=== PATIENT | male | born 1955 | race Caucasian/White ===

== ENCOUNTER 2019-10-06 13:13 | Emergency (ER) | payer BC, SELFPAY ==
--- NOTE | ~2019-10-06 | XR_ITS ---
EXAMINATION: XR knee RT min 4V DATE: 10/06/2019 13:44 INDICATION: Right knee pain TECHNIQUE: Four views of the right knee were obtained. COMPARISON: None. FINDINGS: Alignment is normal. No fracture or osteochondral lesion. There is mild tricompartmental os teoarthritis characterized by tiny marginal osteophytes. No joint effusion/synovitis. There is media l soft tissue swelling of the knee. IMPRESSION: 1. Medial soft tissue swelling of the knee without acute osseous abnormality. Reviewed, dictated and finalized at location A. [employer]
[2019-10-06 13:19] VITALS: BP 162/84; PULSE 93; RESP 20; TEMP 36.9; O2SAT 97
--- NOTE | 2019-10-06 13:26 | ED.LOWEXIN ---
HPI - Extremity Injury (Lower) General Chief Complaint: Extremity Injury, Lower Stated Complaint: R knee pain Time Seen by Provider: 10/06/19 13:25 Source: patient and RN notes reviewed Mode of arrival: ambulatory Limitations: no limitations History of Present Illness HPI Narrative: Pt is a 64 y/o male presenting to the ED c/o knee pain. Pt states she started experiencing some rt knee pain about 3 weeks ago. Pt notes he presented to his PCP, Dr. Haque, who stated he likely strained his MCL. Pt notes the pain alleviated until yesterday when he felt like something broke . Pt states the pain is alleviated when standing up, but is worsened with sitting or lying down. Pt also states his rt knee feels hot , but denies back pain, hip pain, fever, or knee swelling. Pt states he has been taking Aleve intermittently for pain but has not offered any relief. Onset (ago): week(s) (3) Injury: Right: knee Relieving factors: other (Standing up) Exacerbating factors: other (Sitting down; Lying down) Associated symptoms: other (Rt knee feels hot ) Related Data Home Medications Medication Instructions Recorded Confirmed atorvastatin 20 mg tablet 20 mg PO DAILY 07/08/19 acetaminophen 300 mg-codeine 30 mg 1 tablet PO Q6H PRN 09/09/19 tablet Allergies Allergy/AdvReac Type Severity Reaction Status Date / Time No Known Allergies Allergy Unverified 10/06/19 13:40 Review of Systems Review of Systems: All systems reviewed & are unremarkable except as noted in HPI and below Constitutional: Constitutional: Denies fever(s) Musculoskeletal: Musculoskeletal: Denies back pain and Reports other (Reports: rt knee pain; rt knee feels hot; Denies: hip pain) Integumentary/Breasts: Skin/Breast: Denies swelling (Knee) PMFSH Past Medical History Medical History Attention deficit disorder (ADD) in adult Chronic bilateral low back pain History of kidney stones HLD (hyperlipidemia) Surgical History Surgical History H/O lithotripsy History of lumbar surgery L1-S2 Family History Family History Mother Patient's mother is , Onset Age: 63 Heart disease Father Patient's father is , Onset Age: 70 Heart disease Social History Social History Smoking packs per day: 1 Smoking cigarettes per day: 20.0 Years smoked: 25 Smoking pack-years: 25.00 Smoking status: Former smoker Second hand tobacco smoke exposure: No Smoking end date: 08/14/97 Alcohol intake: never Substance use: never Substance use type: does not use Gender identity (if verbalized by the patient): Male Exam Const: General: cooperative, no acute distress and alert Nutritional Appearance: well nourished Orientation/consciousness: patient oriented x3 Limitations: no limitations HENMT: Mouth: Yes lip normal and Yes moist mucous membranes Resp: Effort & Inspection: normal respiratory effort Auscultation: clear to auscultation bilaterally Cardio: Rate: regular rate Rhythm: regular rhythm Peripheral pulses: dorsalis pedis present (2+) GI: GI Palp: Yes Soft to palpation and No Tenderness to palpation present (GI) Auscultation: normal bowel sounds Skin: General skin exam: normal color Neuro: General: patient oriented x3 Cognition (Neuro): normal cognition Speech: normal speech Extrem: General: no clubbing, cyanosis or edema Right lower extremity: knee (Tenderness over medial aspect and over MCL) Other: No tenderness on popliteal fossa of rt knee; no effusion of rt knee; no warmth or redness over rt knee Psych: Mental Status: mental status grossly normal Affect: normal affect Attitude: cooperative Course Course Emergency Course: Patient with soft tissue swelling noted on x-ray without any other abnormalities noted. Exam unremarkab
[2019-10-06] MEDS: KETOROLAC (*BKC) 60 MG/2 ML VIAL IM (13:43)
== END 2019-10-06 15:06 | disposition home or self-care (01) ==
PROVIDERS: Emergency Provider Emergency Medicine; PCP Family Medicine
DX: M25.561 Pain in right knee (principal); E78.5 Hyperlipidemia, unspecified; Z87.442 Personal history of urinary calculi; Z87.891 Personal history of nicotine dependence
CPT/HCPCS: 73564; 96372; 99283; J1885

== ENCOUNTER 2019-10-21 06:28 | Outpatient (CLI) | payer BC, SELFPAY ==
--- NOTE | ~2019-10-21 | MR_ITS ---
EXAMINATION: MR knee RT wo con DATE: 10/21/2019 07:36 INDICATION: Right knee pain. TECHNIQUE: Magnetic resonance imaging (MRI) of the right knee was performed without intravenous contr ast. Sequences included axial PD-weighted FS FSE, coronal PD-weighted FSE and PD-weighted FS FSE, sag ittal PD-weighted FSE, and sagittal T2-weighted FS FSE. COMPARISON: Right knee radiographs 10/06/2019 FINDINGS: Medial compartment: There is a complex tear involving body and posterior horn of medial meniscus. There is a subchondral fracture of femoral condyle involving the medial articular surface with less than 1 mm impaction of t he cortex and bone marrow edema. There is cartilage surface regularity of tibial condyle. There is pa rtial-thickness cartilage loss of femoral condyle involving the medial articular surface. Lateral compartment: There is a radial tear of posterior horn of lateral meniscus. There is cartilage surface irregularity of tibial condyle and femoral condyle. Patellofemoral compartment: There is full-thickness cartilage loss of patellar medial facet with moderate subchondral edema-like marrow signal intensity. There is full-thickness cartilage loss of central trochlea with mild subchon dral edema-like marrow signal intensity. Ligaments and tendons: The anterior and posterior cruciate ligaments are normal. There are changes of prior sprain of medial collateral ligament characterized by increased signal intensity. Lateral collateral ligament complex is normal. There is mild patellar tendinopathy. Fluid: There is a small knee joint effusion. There is trace fluid in a London's cyst. There is mild prepatell ar and superficial infrapatellar bursitis. IMPRESSION: 1. Subchondral fracture of medial femoral condyle. 2. Severe chondrosis of patellofemoral compartment and mild chondrosis of medial and lateral compartm ents. 3. Tears of the medial and lateral menisci. 4. Small knee joint effusion. Reviewed, dictated and finalized at location A. IMPRESSION: 1. Subchondral fracture of medial femoral condyle. 2. Severe chondrosis of patellofemoral compartment and mild chondrosis of media l and lateral compartments. 3. Tears of the medial and lateral menisci. 4. Small knee joint effusion.
== END 2019-10-21 06:29 | disposition home or self-care (01) ==
LOC: ANHIMG 06:34
PROVIDERS: PCP Family Medicine; Visit Provider Family Medicine
DX: M25.561 Pain in right knee (principal); S72.431A Displaced fracture of medial condyle of right femur, initial encounter for closed fracture; M22.2X1 Patellofemoral disorders, right knee; S83.241A Other tear of medial meniscus, current injury, right knee, initial encounter; S83.281A Other tear of lateral meniscus, current injury, right knee, initial encounter; M25.461 Effusion, right knee
CPT/HCPCS: 73721

== ENCOUNTER 2019-12-25 06:20 | Outpatient (CLI) | payer BC, SELFPAY ==
[2019-12-25 16:38] LABS: SARS-CoV-2 RNA PCR Negative
== END 2019-12-25 06:21 | disposition home or self-care (01) ==
LOC: ANHCOVIDDT 06:21
PROVIDERS: PCP Family Medicine; Visit Provider Orthopaedic Surgery
DX: Z01.818 Encounter for other preprocedural examination (principal); Z11.59 Encounter for screening for other viral diseases
CPT/HCPCS: 87635; C9803; U0003

== ENCOUNTER 2019-12-25 08:43 | Outpatient (CLI) | payer BC, SELFPAY ==
--- NOTE | 2019-12-25 08:50 | ECG_ITS ---
Measurements Intervals [place] Rate: 85 P: 50 CA: 151 QRS: -2 QRSD: 86 T: 37 QT: 326 QTc: 389 Interpretive Statements SINUS RHYTHM DELAYED PRECORDIAL R/S TRANSITION BASELINE ARTIFACT- I, III, AVR, AVL, AVF BORDERLINE ECG Electronically Signed On 12-25-2019 9:29:23 CDT by Brooks Garcia D.O.
== END 2019-12-25 08:44 | disposition home or self-care (01) ==
LOC: ANHSURGERY 08:50
PROVIDERS: PCP Family Medicine; Visit Provider Orthopaedic Surgery
DX: Z01.810 Encounter for preprocedural cardiovascular examination (principal); E78.5 Hyperlipidemia, unspecified
CPT/HCPCS: 93005

== ENCOUNTER 2019-12-27 01:07 | Day surgery (SDC) | payer BC, SELFPAY ==
[2019-12-24 08:22] VITALS: BMI 32.8
[2019-12-27] VITALS (8 sets, daily range): BP systolic 119–143; BP diastolic 63–90; PULSE 71–86; RESP 14–20; TEMP 36.3–36.8; O2SAT 92–100
[2019-12-27] MEDS: LACTATED RINGERS 1,000 ML 30 ML IV CONT ×2 (06:20→09:14)
--- NOTE | 2019-12-27 07:07 | WPDANESEPPF ---
Anes - Initial Pre Proc Eval Procedure: Operation Date: 12/27/19 07:30 Proposed Procedures p Right Knee Arthroscopic Partial Medial, Lateral Meniscectomy - Jassi Salazar MD Date/Time: 12/27/19 07:07 Surgeon: Jassi Salazar MD Pre Op Diagnosis: Right Knee Medial and Lateral Meniscus Tear Patient Data Age: 64 Gender: M Height: 5 ft 11 in Weight: 109.9 kg Last Vital Signs Temp 97.4 F L 12/27/19 06:05 Pulse 73 12/27/19 06:05 Resp 16 12/27/19 06:05 BP 136/77 12/27/19 06:05 Pulse Ox 98 12/27/19 06:05 Allergies Allergy/AdvReac Type Severity Reaction Status Date / Time No Known Allergies Allergy Verified 12/24/19 08:18 Home Medications Medication Instructions Recorded Confirmed Type atorvastatin 20 mg tablet 20 mg PO DAILY #90 tablet 11/28/19 12/27/19 Rx hydrocodone 5 mg-acetaminophen 325 1 tablet PO Q6H PRN #28 tablet 11/28/19 12/27/19 Rx mg tablet methylphenidate HCl 20 mg tablet 20 mg PO TID #90 tablet 12/13/19 12/27/19 Rx Patient hx anesthesia problems: none Family hx anesthesia problems: none PMFSH Social History Social History Smoking packs per day: 1 Smoking cigarettes per day: 20.0 Years smoked: 25 Smoking pack-years: 25.00 Smoking status: Former smoker Second hand tobacco smoke exposure: No Smoking end date: 08/14/97 Alcohol intake: never Substance use: never Substance use type: does not use Gender identity (if verbalized by the patient): Male Anes - Eval Final PreProcedure Day of Procedure 12/27/19 07:07 Patient weight: overweight Heart: regular rate and rhythm Lungs: clear to auscultation Airway: Mallampati scale class II Neurological: alert and oriented Last oral intake: >/= 8 hours ASA classification: II Emergent: no Anesthetic plan: proceed Anesthesia type and monitoring: general LMA and standard monitoring Informed Consent: The patient's anesthetic plan and its attendant risks and benefits were discussed with the patient/family/POA. Questions were solicited and answers provided to the satisfaction of the patient/family/POA.
--- NOTE | 2019-12-27 07:26 | PM.HPGS ---
History of Present Illness History of Present Illness Consent: Risks, benefits, and alternatives have been discussed and questions answered. Patient agrees to proceed with procedure. Chief complaint: Right Knee Medial and Lateral Meniscus Tear Narrative: Keon Taylor Jr. is a 64 year old male complains of persistent medial joint side pain. Worse with activities. Worse with twisting. Feels an intermittent catching sensation. Also pain at night. [facility] Past Medical History Medical History Attention deficit disorder (ADD) in adult Chronic bilateral low back pain History of kidney stones HLD (hyperlipidemia) Tear of medial meniscus of right knee Surgical History Surgical History H/O lithotripsy (~2013) H/O lithotripsy (~2014) History of cholecystectomy (~1996) History of hernia repair (~2001) History of lumbar surgery (~2017) L1-S2 Family History Family History Mother Patient's mother is , Onset Age: 63 Heart disease Father Patient's father is , Onset Age: 70 Heart disease Social History Social History Smoking packs per day: 1 Smoking cigarettes per day: 20.0 Years smoked: 25 Smoking pack-years: 25.00 Smoking status: Former smoker Second hand tobacco smoke exposure: No Smoking end date: 08/14/97 Alcohol intake: never Substance use: never Substance use type: does not use Gender identity (if verbalized by the patient): Male Meds Home Medications and Allergies Home Medications Medication Instructions Recorded Confirmed Type atorvastatin 20 mg tablet 20 mg PO DAILY #90 tablet 11/28/19 12/27/19 Rx hydrocodone 5 mg-acetaminophen 325 1 tablet PO Q6H PRN #28 tablet 11/28/19 12/27/19 Rx mg tablet methylphenidate HCl 20 mg tablet 20 mg PO TID #90 tablet 12/13/19 12/27/19 Rx Allergies Allergy/AdvReac Type Severity Reaction Status Date / Time No Known Allergies Allergy Verified 12/24/19 08:18 Vital Signs Vital Signs - 24 hr 12/27/19 06:05 Temperature 36.3 C L Pulse Rate 73 Respiratory Rate 16 Blood Pressure 136/77 Pulse Oximetry 98 Exam Narrative: Exam Narrative: Healthy, No distress. Antalgic gait, with crutches. Mild effusion. Exquisite medial joint line tenderness. Range of motion 0 to 130?. Pain with hyperflexion. Gabriela's test positive. No medial or lateral instability. Extensor mechanism intact. Skin without rash or lesion. Calf nontender. Straight leg raise negative. Hip examination benign. Assessment and Plan Assessment and plan (1) Tear of medial meniscus of right knee: Code(s): S83.241A - Other tear of medial meniscus, current injury, right knee, initial encounter Status: Acute Assessment and Plan: Symptomatic medial and lateral meniscus tear. Also medial condyle defect, and significant mechanical symptoms. Using crutches. The pain is medial. The lateral tear and degenerative arthritis is chronic. Discussed the risks, benefits, and alternatives. We agreed to proceed with arthroscopic partial medial and lateral meniscectomy. The patient understands the limitations given the degenerative changes in the knee.
[2019-12-27] MEDS: ceFAZolin 2 GM/D5W 50 ML 2 GM/50 ML BAG IVPB (07:27)
[2019-12-27] MEDS: BUPIVACAINE/EPINEPHRINE 0.5% 30 ML VIAL 20 ML INFILTRATE (07:50)
[2019-12-27] MEDS: IBUPROFEN IV 800 MG/200 ML 800 MG/200 ML BAG 400 MG IVPB (07:55)
--- NOTE | 2019-12-27 08:29 | P.OP_ITS ---
Procedure Note - Detailed Date of procedure: 12/27/19 Pre-op diagnosis: Right Knee Medial and Lateral Meniscus Tear Medial and lateral meniscus tears. Post-op diagnosis: same Procedure performed: Arthroscopic partial medial and lateral meniscectomies. Anesthesia: GETA Surgeon: Jassi Salazar MD Estimated blood loss (mL): 5 Complications: None Condition: stable Findings: Brief History: The patient complained of knee pain, swelling and mechanical symptoms despite conservative treatment. MRI confirmed the presence of a medial and lateral meniscus tear. Operative Findings: Significant medial meniscus tear with displacement of a large fragment. This was pulled into the joint and debrided. Minimal chondromalacia on the femur medially. Also only minimal grade 1 chondromalacia with slight fibrillation on the lateral femur. The lateral posterior horn meniscus had some degeneration with a small tear. This was gently debrided with the arthroscopic shaver. The ACL was intact. There was a tiny osteophyte in the notch. It was rather round, smooth, and small but showed the potential for future impingement. It was seen easily debrided. Patella showed minimal changes. The trochlea did show grade 2/III chondromalacia. No other abnormalities or loose bodies were noted. There was a mild synovitis. Procedure Details: The patient was identified and the surgical site confirmed and signed in the preoperative holding area. Antibiotics were started per p tigistocol. He was brought to the operative room and transferred to the OR table. A general anesthetic was administered. Supine position with the operative lower extremity position in the leg anand after placement of a well padded tourniquet. The leg support was lowered and the contralateral limb was supported with a soft bolster. The knee was prepped and draped in the usual sterile fashion. A time-out was performed. The portal sites were marked and infiltrated with 0.5% Marcaine 20 mL. The limb was exsanguinated and the tourniquet inflated to 300 mL Hg. Standard inferolateral and inferomedial portals were established. Inflow was obtained with the saline pump. The camera was introduced. Diagnostic inspection of the joint was accomplished. The menisci were debrided with the arthroscopic shaver and punches until stable. The arthroscopic instruments were removed. The tourniquet released and wounds closed with subcutaneous 3-0 Monocryl absorbable suture. Steri strips and a sterile dressing were applied. A light elastic wrap was placed. The patient was extubated and brought to the recovery room in stable condition.
== END 2019-12-27 10:40 | disposition home or self-care (01) ==
PROVIDERS: PCP Family Medicine; Visit Provider Orthopaedic Surgery
PROC: (CPT 29870; principal; 2019-12-27 07:30)
DX: M23.251 Derangement of posterior horn of lateral meniscus due to old tear or injury, right knee (principal); M23.203 Derangement of unspecified medial meniscus due to old tear or injury, right knee; Z87.891 Personal history of nicotine dependence; E78.5 Hyperlipidemia, unspecified; M54.5 Low back pain; G89.29 Other chronic pain
CPT/HCPCS: 29880; A9270; J0690; J1100; J1741; J2250; J2405; J2704; J3010; J7120

== ENCOUNTER 2020-05-09 20:06 | Emergency (ER) | payer BC, SELFPAY ==
--- NOTE | ~2020-05-09 | CT_ITS ---
EXAMINATION: CT abdomen pelvis wo con DATE: 05/09/2020 20:24 INDICATION: Right flank pain TECHNIQUE: Computed tomography (CT) of the abdomen and pelvis was performed without intravenous contr ast. The dose-length product (DLP) was 593.65 mGy-cm. Automated exposure control and iterative recons truction technique were employed. COMPARISON: None FINDINGS: The lung bases are clear. The heart size is normal. The gallbladder is surgically absent. T he liver, spleen, pancreas, and adrenal glands are normal. There are at least six nonobstructing ston es of the right kidney which measure up to 3 mm. Two nonobstructing stones of the left kidney measure up to 4 mm. There is a 3 mm stone in the urinary bladder. Mild right hydroureteronephrosis is noted. No pathologically enlarged abdominal or pelvic lymph nodes are identified. There is no free intraper itoneal gas or evidence of bowel obstruction. A retroaortic left renal vein is noted. Colonic diverti culosis is present without evidence of diverticulitis. There are changes of anterior and posterior fu shannan at L5-S1. The appendix is normal. IMPRESSION: 1. Mild right hydroureteronephrosis with 3 mm stone in the urinary bladder. Findings likely reflect r ecent passage of right-sided stone. 2. Bilateral nonobstructing nephrolithiasis. Reviewed, dictated and finalized at location A. IMPRESSION: 1. Mild right hydroureteronephrosis with 3 mm stone in the urinary bladder. Fin dings likely reflect recent passage of right-sided stone. 2. Bilateral nonobstructing nephrolithiasis.
--- NOTE | 2020-05-09 20:15 | ED.ABDPAIN ---
HPI - Abdominal Pain General Chief Complaint: Back Pain/Injury Stated Complaint: kidney stone Time Seen by Provider: 05/09/20 20:09 Source: RN notes reviewed History of Present Illness HPI narrative: Patient presents emergency department from home for right flank pain. Patient states symptoms initially began this morning with right flank pain that then resolved and came back more severe this afternoon. Pain is located in the right flank and radiates around to the right lower abdomen. Described as sharp and stabbing and associated with nausea vomiting. States he has a history of prior kidney stone and this feels like prior. Denies any fevers or chills chest pain shortness of breath or any other symptoms. Related Data Allergies Allergy/AdvReac Type Severity Reaction Status Date / Time No Known Allergies Allergy Verified 05/09/20 20:23 Review of Systems Review of Systems: Narrative: Gen.: Denies fevers or chills ENT: Denies congestion Respiratory: Denies shortness of breath or cough CV: Denies chest pain or palpitations GI: See HPI denies burning, urgency, frequency or hematuria Musculoskeletal: Denies back pain or muscle pain Neuro: Denies numbness, tingling, weakness or focal weakness Skin: Denies rash Except as documented, all other systems reviewed and negative PMFSH Past Medical History Medical History Attention deficit disorder (ADD) in adult Chronic bilateral low back pain History of kidney stones HLD (hyperlipidemia) Tear of medial meniscus of right knee Social History Social History Smoking packs per day: 1 Smoking cigarettes per day: 20.0 Years smoked: 25 Smoking pack-years: 25.00 Smoking status: Former smoker Second hand tobacco smoke exposure: No Smoking end date: 08/14/97 Alcohol intake: never Substance use: never Substance use type: does not use Gender identity (if verbalized by the patient): Male Sexual Orientation (if Verbalized by the Patient): Straight or Heterosexual Exam Narrative: Exam Narrative: APPEARANCE: No acute distress, nontoxic, resting in bed EYES: EOMI HEENT: Normocephalic, atraumatic, OMM RESPIRATORY: No respiratory distress Clear to auscultation bilaterally with no rhonchi wheezing or rales. CARDIOVASCULAR: Regular rate and rhythm without murmurs rubs or gallops. ABDOMINAL: Soft, nontender, nondistended, no rebound or guarding right flank tender to palpation MUSCULOSKELETAl: Moves all extremities. No clubbing, cyanosis or edema. NEURO: Awake and alert. Following commands, speech normal, no focal deficits SKIN:: Warm, dry. No rashes lesions or abrasions PSYCHIATRIC: Normal affect/mood, Course Course Emergency Course: Discussed with patient results of workup and diagnosis. Discussed need for follow-up with primary care, proper use of medication, and reasons to return to the emergency department. Patient understands and agrees to current treatment plan Vital Signs Vital signs: Vital Signs Temperature 98.8 F 05/09/20 20:19 Pulse Rate 85 05/09/20 20:19 Respiratory Rate 17 05/09/20 20:19 Blood Pressure 160/79 H 05/09/20 20:19 Pulse Oximetry 97 05/09/20 20:19 Temperature 98.8 F 05/09/20 20:19 Pulse Rate 72 05/09/20 21:36 Respiratory Rate 18 05/09/20 21:36 Blood Pressure 150/104 H 05/09/20 21:36 Pulse Oximetry 96 05/09/20 21:36 MDM - Abdominal Pain MDM Narrative Medical decision making narrative: Patient's abdomen is soft without significant pain or signs of surgical abdomen on serial exams. Lab and x-ray evaluations are reviewed and patient is felt to be a reasonable candidate for outpatient management. Patient was instructed as to limitations of x-ray and laboratory evaluation and encouraged to return to ED or primary physician for repeat exam in 12 hours if continued or worsening pain Lab Data Result diagra
[2020-05-09 20:19] VITALS: BP 160/79; PULSE 85; RESP 17; TEMP 37.1; O2SAT 97
--- NOTE | 2020-05-09 20:23 | PC.NURSE ---
pt to ct via stretcher at this time.
[2020-05-09 20:26] LABS: Basophils Percent Auto 0.4 % (0.2-1.2); Eosinophils Absolute Auto 0.1 K/mm3 (0-0.3); Eosinophils Percent Auto 0.8 % (0-4.4); Hemoglobin 14.7 g/dL (14.0-18.0); Immature Granulocyte Absolute 0.02 K/mm3 (0.00-0.031); Immature Granulocyte Percent A 0.3 % (0-0.5); Lymphocytes Absolute Auto 2.86 K/mm3 (0.9-3.2); Lymphocytes Percent Auto 38.8 % (18.3-44.2); Mean Corpuscular HGB Conc 32.7 g/dl (32-36); Mean Corpuscular Hemoglobin 27.2 pg (26-34); Mean Corpuscular Volume 83.3 fl (80-100); Mean Platelet Volume 10.8 fl (7.4-10.4); Monocytes Absolute Auto 0.4 K/mm3 (0.1-0.6); Monocytes Percent Auto 5.8 % (2.6-8.5); Neutrophils Percent Auto 53.9 % (45.5-73.1); Platelet Count Result 198 k/mm3 (150-375); Red Cell Distribution Width 15.8 % (11.5-14.5); White Blood Count 7.4 K/mm3 (4.5-10.0)
[2020-05-09 20:37] LABS: Alanine Aminotransferase 34 U/L (4-50); Albumin Level 4.3 g/dL (3.5-5.1); Alkaline Phosphatase 110 U/L (38-126); Anion Gap 5 mmol/L (8-16); Aspartate Amino Transferase 35 U/L (17-59); Bilirubin,Total 0.5 mg/dL (0.2-1.3); Blood Urea Nitrogen 12 mg/dL (9-20); Calcium 9.6 mg/dL (8.4-10.2); Carbon Dioxide 29 mmol/L (22-30); Chloride 107 mmol/L (98-107); Estimated CRCL calculation 83 ml/min; Estimated Glomerular Filt Rate > 60; Glucose 170 mg/dL (75-110); Potassium 4.4 mmol/L (3.4-5.0); Sodium 141 mmol/L (137-145)
[2020-05-09 20:38] LABS: Lipase 44 U/L (23-300)
[2020-05-09] MEDS: SODIUM CHLORIDE 0.9% IV 1,000 ML 999 ML IV CONT (20:43)
[2020-05-09] MEDS: MORPHINE SULFATE (*CRX) 4 MG/ML INJ IV PUSH (20:44)
[2020-05-09] MEDS: ONDANSETRON INJ 4 MG/2 ML VIAL IV PUSH (20:44)
[2020-05-09] MEDS: KETOROLAC 30 MG/ML VIAL (*BKC) IV PUSH (21:27)
[2020-05-09 21:32] LABS: Add Urine Microscopic? YES; Appearance Urine Cloudy (Clear); Bilirubin Urine Negative (Negative); Blood Urine 3+ (Negative); Color Urine Yellow (Yellow); Glucose Urine UA Negative (Negative); Ketones Urine Negative (Negative); Leukocyte Esterase Ur Negative LEU/UL (Negative); Mucus Urine Few /lpf; Nitrate Urine Negative (Negative); Protein Urine 2+ mg/dL (Negative); RBC Urine >75 /hpf (0-2); Specific Grav Ur 1.019 (1.001-1.035); Squamous Epithelial Cell Urine Rare /hpf (Few); Urobilinogen Urine Negative mg/dL (<2.0); WBC Urine 0-3 /hpf
[2020-05-09 21:36] VITALS: BP 150/104; PULSE 72; RESP 18; O2SAT 96
[2020-05-09] MEDS: TAMSULOSIN HCL 0.4 MG CAPSULE PO (22:37)
[2020-05-09 23:06] VITALS: BP 137/78; PULSE 65; RESP 18; O2SAT 97
== END 2020-05-09 23:08 | disposition home or self-care (01) ==
PROVIDERS: Emergency Provider Emergency Medicine; PCP Family Medicine
DX: N13.2 Hydronephrosis with renal and ureteral calculous obstruction (principal); Z87.442 Personal history of urinary calculi; E78.5 Hyperlipidemia, unspecified; F17.210 Nicotine dependence, cigarettes, uncomplicated
CPT/HCPCS: 36415; 74176; 80053; 81001; 83690; 85025; 96361; 96374; 96375; 99284; A9270; J1885; J2270; J2405; J7030

== ENCOUNTER 2020-05-21 04:57 | Outpatient (CLI) | payer BC, SELFPAY ==
[2020-05-21 16:38] LABS: SARS-CoV-2 RNA PCR Negative
== END 2020-05-21 04:58 | disposition home or self-care (01) ==
LOC: ANHCOVIDDT 04:58
PROVIDERS: PCP Family Medicine; Visit Provider Urology
DX: Z01.812 Encounter for preprocedural laboratory examination (principal); Z20.828 Contact with and (suspected) exposure to other viral communicable diseases
CPT/HCPCS: 87635; C9803; U0003

== ENCOUNTER 2020-05-22 00:37 | Day surgery (SDC) | payer BC, SELFPAY ==
[2020-05-20 14:10] VITALS: BMI 32.8
[2020-05-22] VITALS (7 sets, daily range): BP systolic 136–153; BP diastolic 75–91; PULSE 64–86; RESP 15–20; TEMP 36.1–36.6; O2SAT 96–98
--- NOTE | ~2020-05-22 | XR_ITS ---
EXAMINATION: XR abdomen/kub 1V DATE: 05/22/2020 09:44 INDICATION: Right renal stone. TECHNIQUE: A supine view of the abdomen on 2 radiographs was obtained. COMPARISON: CT abdomen and pelvis 05/09/2020 FINDINGS: There are no dilated loops of bowel. Surgical clips in the right upper quadrant are likely from cholecystectomy. There are changes of anterior and posterior fusion procedures in the lumbar spi ne. Surgical clips overlie the pelvis. The kidneys are obscured by bowel. There is a 3 mm stone in le ft kidney. There is a 3 mm stone in right kidney. There is a phlebolith in right pelvis. IMPRESSION: 1. Small bilateral kidney stones. Reviewed, dictated and finalized at location B.
--- NOTE | 2020-05-22 07:05 | WPDHPUPDATE1 ---
History and Physical Update Update Date/Time: 05/22/20 07:05 History and Physical has been reviewed, including an updated exam of the patient. There are NO changes in the patient's condition. Risks, benefits, and alternatives have been discussed and questions answered. Patient agrees to proceed with procedure.
[2020-05-22] MEDS: LACTATED RINGERS 1,000 ML 30 ML IV CONT ×2 (10:04→12:46)
[2020-05-22 10:26] LABS: Partial Thromboplastin Time 27.5 SECONDS (22.3-36.8)
--- NOTE | 2020-05-22 10:45 | WPDANESEPPF ---
Anes - Initial Pre Proc Eval Procedure: Operation Date: 05/22/20 11:30 Proposed Procedures p Right Extracorporeal Shock Wave Lithotripsy - Rico Hamilton MD Date/Time: 05/22/20 10:45 Surgeon: Rico Hamilton MD Pre Op Diagnosis: Right Renal Stones Patient Data Age: 65 Gender: M Height: 5 ft 11 in Weight: 109.2 kg Last Vital Signs Temp 36.6 C 05/22/20 09:53 Pulse 76 05/22/20 09:53 Resp 20 05/22/20 09:53 BP 140/84 05/22/20 09:53 Pulse Ox 98 05/22/20 09:53 Allergies Allergy/AdvReac Type Severity Reaction Status Date / Time No Known Allergies Allergy Verified 05/22/20 10:16 Home Medications Medication Instructions Recorded Confirmed Type atorvastatin 20 mg tablet 20 mg PO DAILY #90 tablet 11/28/19 05/22/20 Rx hydrocodone-acetaminophen 1 tablet PO Q4H PRN #10 tablet 05/09/20 05/20/20 Rx methylphenidate HCl 20 mg tablet 20 mg PO TID #90 tablet 05/18/20 05/22/20 Rx Laboratory Tests 05/22/20 10:05 PT 13.0 Seconds Seconds (11.1-14.7) INR 1.0 APTT 27.5 SECONDS SECONDS (22.3-36.8) Patient hx anesthesia problems: none Family hx anesthesia problems: none PMFSH Past Medical History Medical History Attention deficit disorder (ADD) in adult Chronic bilateral low back pain History of kidney stones HLD (hyperlipidemia) Tear of medial meniscus of right knee Surgical History Surgical History H/O lithotripsy (~2013) H/O lithotripsy (~2014) History of cholecystectomy (~1996) History of hernia repair (~2001) History of lumbar surgery (~2017) L1-S2 Family History Family History Mother Patient's mother is , Onset Age: 63 Heart disease Father Patient's father is , Onset Age: 70 Heart disease Social History Social History Smoking packs per day: 1 Smoking cigarettes per day: 20.0 Years smoked: 20 Smoking pack-years: 20.00 Smoking status: Former smoker Tobacco type: cigarettes Second hand tobacco smoke exposure: No Smoking end date: 08/14/97 Additional smoking assessment comments: quit 22 years ago Alcohol intake: former Alcohol use details: quit 22 years ago Substance use: never Substance use type: does not use Gender identity (if verbalized by the patient): Male Spiritual care concerns: No Anes - Eval Final PreProcedure Day of Procedure 05/22/20 10:45 Patient weight: obese Heart: regular rate and rhythm Lungs: clear to auscultation Airway: Mallampati scale class II Neurological: alert and oriented Last oral intake: >/= 8 hours ASA classification: III Emergent: no Anesthetic plan: proceed Anesthesia type and monitoring: general LMA and standard monitoring Informed Consent: The patient's anesthetic plan and its attendant risks and benefits were discussed with the patient/family/POA. Questions were solicited and answers provided to the satisfaction of the patient/family/POA.
[2020-05-22] MEDS: ceFAZolin 2 GM/D5W 50 ML 2 GM/50 ML BAG IVPB (12:01)
--- NOTE | 2020-05-22 12:35 | PM.PROC ---
Procedure Note - Detailed Date of procedure: 05/22/20 Pre-op diagnosis: Right Renal Stones Post-op diagnosis: same Procedure performed: Right ESWL Description of procedure: The patient was brought to the operative suite where he was placed in the supine position on the Dornier lithotripsy table. The focal point of the lithotripter was placed, at different times, at 4 different identifiable calculi in the right kidney - each ~3-4mm in size. A total of 600 shocks were delivered at a power setting of 4 to each of these 4 stones. There appeared to be good fragmentation of the stone. The patient tolerated the procedure well and was taken to the recovery room in good condition. Anesthesia: GLMA Surgeon: Rico Hamilton MD Estimated blood loss (mL): 0 Drains: No Packing: No Pathology: none sent Complications: No immediate complications Disposition: PACU
[2020-05-22] MEDS: ONDANSETRON INJ 4 MG/2 ML VIAL IV PUSH (13:01)
[2020-05-22] MEDS: fentaNYL CITRATE INJ (*CRX) 100 MCG/2 ML VIAL 25 MCG IV PUSH (13:37)
== END 2020-05-22 14:31 | disposition home or self-care (01) ==
PROVIDERS: PCP Family Medicine; Visit Provider Urology
PROC: (CPT 50590; principal; 2020-05-22 11:30)
DX: N20.0 Calculus of kidney (principal); F98.8 Other specified behavioral and emotional disorders with onset usually occurring in childhood and adolescence; E78.5 Hyperlipidemia, unspecified; Z87.891 Personal history of nicotine dependence; E66.9 Obesity, unspecified; Z68.33 Body mass index [BMI] 33.0-33.9, adult
CPT/HCPCS: 50590; 36415; 74018; 85610; 85730; J0690; J2405; J2704; J3010; J7120

== ENCOUNTER 2020-06-08 11:23 | Outpatient (CLI) | payer BC, SELFPAY ==
--- NOTE | ~2020-06-08 | XR_ITS ---
XR abdomen/kub 1V 06/08/2020 11:42 Indication: Renal stones. Recent lithotripsy. Procedure: KUB Comparison: 05/22/2020 Findings: Bowel gas pattern is nonobstructive. There are cholecystectomy clips. There are small left renal stones at the lower pole. There are also punctate lower pole stones in the right kidney. There is fusion at L5-S1. There are cholecystectomy clips. There is extensive coils overlying the pelvis, p ossibly from hernia repair. Impression: 1: Bilateral nephrolithiasis. Reviewed, dictated and finalized at location A. Impression: 1: Bilateral nephrolithiasis.
== END 2020-06-08 11:24 | disposition home or self-care (01) ==
PROVIDERS: PCP Family Medicine; Visit Provider Urology
DX: N20.0 Calculus of kidney (principal)
CPT/HCPCS: 74018

== ENCOUNTER → 2020-08-24 16:45 | Outpatient (REF) | payer BC, SELFPAY | LOC: ANHLAB 16:45 | PROVIDERS: PCP Family Medicine; Visit Provider Surgery Plastic and Reconstructive Surgery | DX: R22.9 Localized swelling, mass and lump, unspecified (principal) | CPT/HCPCS: 88304 ==

== ENCOUNTER 2020-12-28 10:15 | Outpatient (CLI) | payer BC, SELFPAY ==
--- NOTE | ~2020-12-28 | XR_ITS ---
XR abdomen/kub 1V DATE: 12/28/2020 10:31 INDICATION: Kidney stone follow-up TECHNIQUE: AP projection, 2 views COMPARISON: 06/08/2020 KUB 05/09/[address] abdomen pelvis FINDINGS: A very faint possible small calcified stone is suggested overlying the lower pole right kid sunny. Again noted are 2 small lower pole left renal calcified calculi, the larger approximately 2 mm. These left calcified calculi appear appear stable since 06/08/2020. No ureteral calcified calculi are evident. Noncontrast CT abdomen pelvis examination would be more accurate sensitive for detection of urinary t ract calculi. No visceromegaly is evident. Surgical clips overlie the right upper quadrant. Clips overlie both lower lateral abdomen and inferior pelvic areas. Status post posterior and interbody spinal fusion at L5-S1. Severe degenerative disease at L4-5 and moderate degenerative disc disease at the remaining lumbar in terspaces. IMPRESSION: Probable bilateral nonobstructive nephrolithiasis Postoperative changes right upper quadrant and bilateral lower abdomen and pelvis Status post posterior and interbody spinal fusion at L5-S1 Reviewed, dictated and finalized at Location A. Reviewed, dictated and finalized at location A. IMPRESSION: Probable bilateral nonobstructive nephrolithiasis Postoperative changes right upper quadrant and bilateral lower abdomen and pelv is Status post posterior and interbody spinal fusion at L5-S1
== END 2020-12-28 10:16 | disposition home or self-care (01) ==
LOC: ANHIMG 10:19
PROVIDERS: PCP Family Medicine; Visit Provider Urology
DX: N20.0 Calculus of kidney (principal); Z98.1 Arthrodesis status
CPT/HCPCS: 74018

== ENCOUNTER → 2021-02-08 10:26 | Outpatient (CLI) | payer BC, SELFPAY ==
--- NOTE | ~2021-02-08 | MR_ITS ---
EXAMINATION: MR lumbar spine wo con DATE: 02/08/2021 11:45 INDICATION: Low back pain. TECHNIQUE: Magnetic resonance imaging (MRI) of the lumbar spine was performed without intravenous con trast. Sequences included sagittal T2-weighted FSE, sagittal STIR FSE, sagittal T1-weighted FSE, and axial T2-weighted FSE. COMPARISON: None FINDINGS: Bone alignment is normal. There is a hemangioma in L1 vertebral body. There are Schmorl's n odes at L2-L3 and L3-L4. There is mildly decreased disc height at L3-L4 and severely decreased disc h eight at L4-L5. There are changes of anterior and posterior fusion procedures at L5-S1 with interbody devices and pedicle screws. The following disc levels are specifically discussed: L1-L2: The disc does not extend beyond the endplate margin. There is mild bilateral facet joint osteo arthritis. There is no neural foraminal stenosis. There is no central canal stenosis. L2-L3: The disc is bulging and has an annular fissure. There is mild bilateral facet joint osteoarthr itis. There is moderate right and mild left neural foraminal stenosis. There is mild central canal st enosis. L3-L4: The disc is bulging and has an annular fissure. There is moderate right and mild left facet hilario int osteoarthritis. There is moderate right and mild left neural foraminal stenosis. There is mild ce ntral canal stenosis with asymmetry stenosis of right lateral recess. L4-L5: The disc is bulging and has an annular fissure. There is moderate bilateral facet joint osteoa rthritis. There is moderate bilateral neural foraminal stenosis. There is mild central canal stenosis . L5-S1: There is moderate right and mild left facet joint hypertrophy. There is moderate right and mil d left neural foraminal stenosis. There is no central canal stenosis. IMPRESSION: 1. Severe lumbar spondylosis. 2. Anterior and posterior fusion procedures at L5-S1. Reviewed, dictated and finalized at location A.
== END ==
PROVIDERS: Visit Provider Family Medicine
DX: M47.896 Other spondylosis, lumbar region (principal); Z98.1 Arthrodesis status
CPT/HCPCS: 72148

== ENCOUNTER 2021-07-19 08:42 | Outpatient (CLI) | payer BC, SELFPAY ==
--- NOTE | 2021-07-19 08:45 | ECG_ITS ---
Measurements Intervals [place] Rate: 77 P: 59 SD: 148 QRS: 23 QRSD: 87 T: 54 QT: 347 QTc: 394 Interpretive Statements SINUS RHYTHM VENTRICULAR PREMATURE COMPLEXES LOW QRS VOLTAGE IN PRECORDIAL LEADS BASELINE ARTIFACT- I, II, III, AVR, AVL, AVF BORDERLINE ECG Electronically Signed On 07-19-2021 9:09:44 FILTROSE CRUSHER by Brooks Garcia D.O.
[2021-07-19 09:25] LABS: Anion Gap 8 mmol/L (8-16); Blood Urea Nitrogen 14 mg/dL (9-20); Calcium 9.8 mg/dL (8.4-10.2); Carbon Dioxide 26 mmol/L (22-30); Chloride 103 mmol/L (98-107); Estimated Glomerular Filt Rate > 60; Glucose 141 mg/dL (65-110); Potassium 4.3 mmol/L (3.4-5.0); Sodium 137 mmol/L (137-145)
== END 2021-07-19 08:43 | disposition home or self-care (01) ==
PROVIDERS: Anesthesiology; PCP Family Medicine; Visit Provider Surgery Plastic and Reconstructive Surgery
DX: E11.9 Type 2 diabetes mellitus without complications (principal); Z01.818 Encounter for other preprocedural examination; R94.31 Abnormal electrocardiogram [ECG] [EKG]
CPT/HCPCS: 36415; 80048; 93005

== ENCOUNTER 2021-07-23 00:10 | Day surgery (SDC) | payer BC, SELFPAY ==
[2021-07-14 14:30] VITALS: BMI 32.8
--- NOTE | 2021-07-14 14:31 | PC.NURSE ---
Report to the Outpatient Waiting Room, entrance under the green pavilion located off [facility], at time __1000 on date __07/23/21_. OR Time: 1200 . - You and your visitor will be asked a series of questions to screen for COVID 19 for your protection. - A mask is required within the hospital. - Only one visitor is allowed at this time. Patient visitors will be guided where to wait when not with patient. Preoperative COVID Testing Requirements: No COVID Test needed if: (proof is required; if not received patient will have Rapid Test prior to entry) - Patient has received COVID Vaccine at least 14 days prior to procedure date or - Patient has positive COVID test result within last 90 days of surgery date. COVID Test needed if above criteria is not met If not COVID vaccinated a COVID test must be conducted within 72 hours of surgery and patient is asked to isolate self from time of testing until procedure. You will go to the [employer] [facility] Testing [facility] for your COVID testing. The [employer] [facility] Testing site is located at the corner of [address] [facility]. You will only be called if COVID results are positive and your surgeon may reschedule your elective surgery date. Patients may have clear liquids (water, carbonated beverages, clear teas, apple juice) until 3 hours prior to surgery with a maximum of 20 ounces. - No food from midnight until time of surgery - Infants may have breast milk until 4 hours before surgery, infant formula 6 hours prior to surgery. - Children will be allowed to drink immediately following surgery. If applicable, please bring a bottle or sippy cup to assist with drinking. Juice, water, soda, and popsicles are readily available. For infants on formula, please bring formula the day of surgery. Pacifiers are allowed. Take the following medications with a SIP of water the morning of surgery: ____NONE Medications to discontinue per physician Date to take last dose Please no make-up, nail pashto, hairspray, perfume, deodorant, or body powder the day of surgery. No jewelry (including any body piercings) or valuables the day of surgery, leave them at home. Please take a shower or bath the night before, or the morning of, surgery with an antibacterial soap. Wear comfortable, loose fitting clothing. Children are encouraged to wear pajamas. - Jewelry must be removed prior to entering the operating room. Rings and piercings that are not removed may be cut off. - The hospital will not accept responsibility for valuables. - Please leave all valuables, including medications, at home the day of surgery. If you are going home after surgery, a licensed cdl team truck driver must drive you home. - NO public transportation without another adult. - We recommend that an adult stay with you for 24 hours following discharge. - We also recommend that you do not drive, make important decision, drink alcoholic beverages, or take any drugs that were not prescribed by your health care provider for at least 24 hours after your discharge time. For Pediatric surgeries, we recommend two adults accompany the child home (only one inside the building at this time). Follow any additional instructions given to you from your surgeon. Telephone instructions given to __PATIENT and asked if any additional questions and then verbalized understanding. Patient advised to call surgeon office or pre surgery nurse liaison [phone] if any additional questions.
[2021-07-23] VITALS (9 sets, daily range): BP systolic 124–147; BP diastolic 69–83; PULSE 73–84; RESP 9–16; TEMP 36.2–36.6; O2SAT 95–100
[2021-07-23] MEDS: LACTATED RINGERS 1,000 ML 30 ML IV CONT ×2 (10:35→13:55)
[2021-07-23 10:52] LABS: Glucose Point of Care 96 mg/dl (65-105)
--- NOTE | 2021-07-23 11:12 | WPDANESEPPF ---
Anes - Initial Pre Proc Eval Procedure: Operation Date: 07/23/21 12:00 Proposed Procedures p Excision Cyst Left Upper Eyelid - Ken Kwon MD Date/Time: 07/23/21 11:12 Surgeon: Ken Kwon MD Pre Op Diagnosis: left upper eyelid cyst Patient Data Age: 66 Gender: M Height: 1.78 m Weight: 103 kg Last Vital Signs Temp 36.6 C 07/23/21 10:41 Pulse 74 07/23/21 10:41 Resp 16 07/23/21 10:41 BP 124/79 07/23/21 10:41 Pulse Ox 98 07/23/21 10:41 Allergies Allergy/AdvReac Type Severity Reaction Status Date / Time No Known Allergies Allergy Verified 07/23/21 10:20 Home Medications Medication Instructions Recorded Confirmed Type blood sugar diagnostic #100 ea 11/10/20 07/14/21 Rx blood-glucose meter #1 ea 11/10/20 07/14/21 Rx lancets #200 ea 11/10/20 07/14/21 Rx terbinafine HCl 250 mg tablet 250 mg PO DAILY #14 tablet 02/09/21 07/23/21 Rx fenofibrate 160 mg tablet 160 mg PO DAILY #90 tablet 02/12/21 07/23/21 Rx metformin 500 mg tablet,extended 2,000 mg PO DAILY 90 Days #360 02/19/21 07/23/21 Rx release 24 hr tablet hydrocodone 5 mg-acetaminophen 325 1 tablet PO Q6H PRN #30 tablet 07/12/21 07/14/21 Rx mg tablet ondansetron HCl 4 mg tablet 4 mg PO Q6H PRN #30 tablet 07/12/21 07/14/21 Rx methylphenidate HCl 20 mg tablet 20 mg PO TID #90 tablet 07/13/21 07/23/21 Rx atorvastatin 20 mg PO DAILY 07/14/21 07/23/21 History valsartan 40 mg tablet 40 mg PO DAILY #90 tablet 07/14/21 07/23/21 Rx Laboratory Tests 07/23/21 10:49 POC Capillary Glucose 96 mg/dl mg/dl (65-105) Patient hx anesthesia problems: none Family hx anesthesia problems: none Results Review: All pre-operative results and documents have been reviewed as part of the pre-operative evaluation. [facility], [facility] Past Medical History Medical History Attention deficit disorder (ADD) in adult Chronic bilateral low back pain History of kidney stones HLD (hyperlipidemia) HTN (hypertension) IFG (impaired fasting glucose) Obesity Tear of medial meniscus of right knee Surgical History Surgical History H/O lithotripsy (~2013) H/O lithotripsy (~2014) History of cholecystectomy (~1996) History of hernia repair (~2001) History of lumbar surgery (~2017) L1-S2 Family History Family History Mother Patient's mother is , Onset Age: 63 Heart disease Father Patient's father is , Onset Age: 70 Heart disease Social History Social History Smoking packs per day: 1 Smoking cigarettes per day: 20.0 Years smoked: 20 Smoking pack-years: 20.00 Smoking status: Former smoker Tobacco type: cigarettes Second hand tobacco smoke exposure: No Smoking end date: 08/14/97 Additional smoking assessment comments: quit 22 years ago Alcohol intake: never Alcohol use details: quit 22 years ago Substance use: never Substance use type: does not use Living arrangements: with family Gender identity (if verbalized by the patient): Male Sexual Orientation (if Verbalized by the Patient): Straight or Heterosexual Spiritual care concerns: No Anes - Eval Final PreProcedure Day of Procedure 07/23/21 11:12 Patient weight: obese Heart: regular rate and rhythm Lungs: clear to auscultation and normal air movement Airway: Mallampati scale class II Neurological: alert and oriented Last oral intake: >/= 8 hours ASA classification: III Emergent: no Anesthetic plan: proceed Anesthesia type and monitoring: general GIVS and LMA Results Review: All pre-operative results and documents have been reviewed as part of the pre-operative evaluation. Informed Consent: The patient's anesthetic plan and its attendant risks and benefits were discussed with the
--- NOTE | 2021-07-23 12:00 | WPDHPUPDATE1 ---
History and Physical Update Update Date/Time: 07/23/21 12:00 History and Physical has been reviewed, including an updated exam of the patient. There are NO changes in the patient's condition. Risks, benefits, and alternatives have been discussed and questions answered. Patient agrees to proceed with procedure.
[2021-07-23] MEDS: ceFAZolin 2 GM/D5W 50 ML 2 GM/50 ML BAG IVPB (12:07)
[2021-07-23] MEDS: LIDO 1%/EPINEPHRINE 1:100,000 50 ML VIAL INFILTRATE (12:19)
--- NOTE | 2021-07-23 12:37 | W.PM.PROC2 ---
Procedure Note - Detailed Date of Procedure 07/23/21 Pre-op Diagnosis left upper eyelid cyst Post-op Diagnosis same Procedure Performed Excision left upper eyelid cyst 0.4 cm Surgeon Ken Kwon MD Anesthesia general Description of Procedure Preoperatively the risks, benefits, alternatives were discussed in extensive detail. I want him to be very realistic about the risks involved as well as expectations. He states he would prefer to be more aggressive than less in hopes of decreasing recurrence. He understands despite best efforts there is risk of recurrence. He understands the risks of blindness and other visual disturbances which can be permanent. All questions were answered to his satisfaction today and consent obtained. He was marked in the preoperative holding area with his verification. He was taken to the operating room placed supine on the operating room table. Anesthesia provided by anesthesiology and prepped and draped in a standard sterile fashion. Surgical time-out was taken. 1% lidocaine and 0.25% Marcaine with epinephrine were used anesthetize locally. I sharply excised a wedge right where the cyst was to completely remove the cyst. This measured 0.4 cm. I closed the tarsal plate with 5 0 Vicryl followed by 6 0 nylon in the skin. He tolerated the procedure well. I did irrigate the eye with BSS solution there is no evidence of eye or other structure injury. He was woken taken the PACU without difficulty. All instrument sponge counts were correct at the end of case. Estimated Blood Loss 2 Drains No Packing No Pathology yes (Left upper eyelid lateral cyst) Complications No immediate complications Condition stable Disposition PACU
[2021-07-23 13:00] LABS: Glucose Point of Care 89 mg/dl (65-105)
[2021-07-23] MEDS: fentaNYL CITRATE INJ (*CRX) 100 MCG/2 ML VIAL 25 MCG IV PUSH ×8 (13:07→13:56)
[2021-07-23] MEDS: oxyCODONE HCL (*CRX) 5 MG TAB IR PO (14:21)
== END 2021-07-23 14:52 | disposition home or self-care (01) ==
PROVIDERS: PCP Family Medicine; Visit Provider Surgery Plastic and Reconstructive Surgery
PROC: (CPT 11440; principal; 2021-07-23 12:00)
DX: D23.121 Other benign neoplasm of skin of left upper eyelid, including canthus (principal); Z79.84 Long term (current) use of oral hypoglycemic drugs; I10 Essential (primary) hypertension; E78.5 Hyperlipidemia, unspecified; R73.01 Impaired fasting glucose; F98.8 Other specified behavioral and emotional disorders with onset usually occurring in childhood and adolescence; E66.9 Obesity, unspecified; Z68.32 Body mass index [BMI] 32.0-32.9, adult; Z87.891 Personal history of nicotine dependence
CPT/HCPCS: 11440; 82948; 88305; A9270; J0690; J1100; J2405; J2704; J3010; J7120

== ENCOUNTER 2022-01-03 09:45 | Outpatient (CLI) | payer BC, SELFPAY ==
--- NOTE | ~2022-01-03 | XR_ITS ---
XR abdomen/kub 1V 01/03/2022 10:04 Indication: Kidney stones Procedure: KUB Comparison: 12/28/2020 Findings: Bowel gas pattern is nonobstructive. There are multiple right renal stones. There are surgi gerard changes in the right abdomen and pelvis. There are surgical fusion changes at L5-S1. Impression: 1: Right nephrolithiasis. Reviewed, dictated and finalized at location A. Impression: 1: Right nephrolithiasis.
== END 2022-01-03 09:46 | disposition home or self-care (01) ==
PROVIDERS: PCP Family Medicine; Visit Provider Urology
DX: N20.0 Calculus of kidney (principal)
CPT/HCPCS: 74018

== ENCOUNTER 2022-02-03 18:40 | Emergency (ER) | payer BC, SELFPAY ==
--- NOTE | ~2022-02-03 | XR_ITS ---
EXAMINATION: XR abdomen/kub 1V INDICATION: Right flank pain TECHNIQUE: Supine views of the abdomen were obtained on 2 radiographs. COMPARISON: CT from today FINDINGS: There is a subtle 3 mm calcification projecting adjacent to the L4 vertebral body on the ri ght which may reflect the proximal ureteral stone seen on today's CT examination. Additional stones s een on earlier CT examination are not well demonstrated. The bowel gas pattern is normal. IMPRESSION: 1. 3 mm calcification projecting in the expected location of the proximal right ureter. Reviewed, dictated and finalized at location F.
--- NOTE | ~2022-02-03 | CT_ITS ---
EXAMINATION: CT abdomen pelvis wo con DATE: 02/03/2022 19:24 INDICATION: Right flank pain TECHNIQUE: Computed tomography (CT) of the abdomen and pelvis was performed without intravenous contr ast. The dose-length product (DLP) was 417.40 mGy-cm. Automated exposure control and iterative recons truction technique were employed. COMPARISON: 05/09/2020 FINDINGS: The lung bases are clear. The heart size is normal. Gynecomastia is noted on the left. Ther e is calcified coronary artery atherosclerosis. The gallbladder is surgically absent. The liver, sple en, pancreas, and adrenal glands are normal. There is a 4 mm stone in the proximal right ureter causi ng mild hydronephrosis. There is a 3 mm nonobstructing stone in the lower pole of the right kidney. T here is a 3 mm nonobstructing stone of the left kidney. No pathologically enlarged abdominal or pelvi c lymph nodes are identified. There is a circumaortic left renal vein. There is no free intraperitone al gas or evidence of bowel obstruction. The appendix is normal. Colonic diverticulosis is present wi thout evidence of diverticulitis. There are changes of anterior and posterior fusion at L5-S1. Severe lower lumbar spondylosis is noted. IMPRESSION: 1. 4 mm stone of the proximal right ureter causing mild hydronephrosis. 2. Bilateral nephrolithiasis. Reviewed, dictated and finalized at location F.
[2022-02-03 18:46] VITALS: BP 156/103; PULSE 58; RESP 18; TEMP 36.7; O2SAT 100
[2022-02-03 19:00] LABS: Basophils Percent Auto 0.5 % (0.2-1.2); Eosinophils Percent Auto 0.5 % (0-4.4); Hematocrit 43.8 % (42.0-52.0); Hemoglobin 14.2 g/dL (14.0-18.0); Immature Granulocyte Absolute 0.02 K/mm3 (0.00-0.031); Immature Granulocyte Percent A 0.3 % (0-0.5); Lymphocytes Absolute Auto 3.08 K/mm3 (0.9-3.2); Lymphocytes Percent Auto 39.5 % (18.3-44.2); Mean Corpuscular HGB Conc 32.4 g/dl (32-36); Mean Corpuscular Hemoglobin 25.8 pg (26-34); Mean Corpuscular Volume 79.5 fl (80-100); Mean Platelet Volume 9.7 fl (7.4-10.4); Monocytes Absolute Auto 0.5 K/mm3 (0.1-0.6); Monocytes Percent Auto 6.2 % (2.6-8.5); Neutrophils Absolute Auto 4.1 K/mm3 (1.3-6.7); Platelet Count Result 223 k/mm3 (150-375); Red Blood Count 5.51 M/mm3 (4.6-6.20); Red Cell Distribution Width 15.1 % (11.5-14.5); White Blood Count 7.8 K/mm3 (4.5-10.0)
--- NOTE | 2022-02-03 19:07 | ED.ABDPAIN ---
HPI - Abdominal Pain General Chief Complaint: Abdominal Pain Stated Complaint: right flank pain Time Seen by Provider: 02/03/22 19:04 History of Present Illness HPI narrative: Pt presents with right flank apin radiating into groin for the last hour. Pt has a history of kidney stones and this feels similar. Pt is nauseated and vomiting as well. Pain is constant and waxes and wanes in severity. Nothing makes it better or worse. Related Data Allergies Allergy/AdvReac Type Severity Reaction Status Date / Time No Known Allergies Allergy Verified 10/04/21 09:26 Review of Systems Review of Systems: All systems reviewed & are unremarkable except as noted in HPI and below PMFSH Past Medical History Medical History Attention deficit disorder (ADD) in adult Chronic bilateral low back pain History of kidney stones HLD (hyperlipidemia) HTN (hypertension) IFG (impaired fasting glucose) Obesity Tear of medial meniscus of right knee Surgical History Surgical History H/O lithotripsy (~2013) H/O lithotripsy (~2014) History of cholecystectomy (~1996) History of hernia repair (~2001) History of lumbar surgery (~2017) L1-S2 Family History Family History Mother Patient's mother is , Onset Age: 63 Heart disease Father Patient's father is , Onset Age: 70 Heart disease Social History Social History Smoking packs per day: 1 Smoking cigarettes per day: 20.0 Years smoked: 20 Smoking pack-years: 20.00 Smoking status: Former smoker Tobacco type: cigarettes Second hand tobacco smoke exposure: No Smoking end date: 08/14/97 Additional smoking assessment comments: quit 22 years ago Alcohol intake: never Alcohol use details: quit 22 years ago Substance use: never Substance use type: does not use Gender identity (if verbalized by the patient): Male Sexual Orientation (if Verbalized by the Patient): Straight or Heterosexual Spiritual care concerns: No Exam Const: General: diaphoretic Nutritional Appearance: well nourished Orientation/consciousness: patient oriented x3 Limitations: no limitations Neck: Neck: normal visual inspection Chest: Chest palpation & inspection: normal inspection of the chest Resp: Effort & Inspection: normal respiratory effort and uses accessory muscles Auscultation: clear to auscultation bilaterally Cardio: Rate: regular rate Rhythm: regular rhythm GI: GI Palp: Yes Soft to palpation and Yes Tenderness to palpation present (GI) (tender right flank) Auscultation: normal bowel sounds : General: Yes CVA tenderness Skin: General skin exam: normal color Rashes: no rashes Wounds: no wounds Neuro: General: patient oriented x3, moves all extremities and no focal motor deficits Extrem: General: normal to inspection and no clubbing, cyanosis or edema Psych: Mental Status: mental status grossly normal Affect: normal affect Attitude: cooperative Course Vital Signs Vital signs: Vital Signs Temperature 98.1 F 02/03/22 18:46 Pulse Rate 58 L 02/03/22 18:46 Respiratory Rate 18 02/03/22 18:46 Blood Pressure 156/103 H 02/03/22 18:46 Pulse Oximetry 100 02/03/22 18:46 Oxygen Delivery Room Air 02/03/22 18:46 Temperature 98.1 F 02/03/22 18:46 Pulse Rate 81 02/03/22 21:59 Respiratory Rate 20 02/03/22 21:59 Blood Pressure 147/86 H 02/03/22 21:59 Pulse Oximetry 99 02/03/22 21:59 Oxygen Delivery Room Air 02/03/22 18:46 MDM - Abdominal Pain Lab Data Result diagrams: 02/03/22 18:54 02/03/22 18:54 Labs: Lab Results 02/03/22 02/03/22 02/03/22 Range/Units 18:54 18:54 18:54 WBC 7.8 (4.5-10.0) K/mm3 RBC 5.51 (4.6-6.20) M/mm3 Hgb
[2022-02-03 19:12] LABS: Alanine Aminotransferase 31 U/L (6-50); Albumin Level 4.4 g/dL (3.5-5.1); Alkaline Phosphatase 87 U/L (38-126); Anion Gap 7 mmol/L (8-16); Aspartate Amino Transferase 29 U/L (17-59); Bilirubin,Total 0.4 mg/dL (0.2-1.3); Blood Urea Nitrogen 9 mg/dL (9-20); Calcium 8.9 mg/dL (8.4-10.2); Carbon Dioxide 27 mmol/L (22-30); Chloride 109 mmol/L (98-107); Estimated CRCL calculation 73 ml/min; Estimated Glomerular Filt Rate > 60; Glucose 116 mg/dL (65-110); Potassium 3.9 mmol/L (3.4-5.0); Sodium 143 mmol/L (137-145)
--- NOTE | 2022-02-03 19:15 | PC.NURSE ---
Talked to lab and added on LIP at 19:13
[2022-02-03] MEDS: SODIUM CHLORIDE 0.9% IV 1,000 ML 999 ML IV CONT (19:22)
[2022-02-03] MEDS: HYDROmorphone HCL INJ (*CRX) 1 MG/ML SYR IV PUSH ×2 (19:22→20:08)
[2022-02-03] MEDS: ONDANSETRON INJ 4 MG/2 ML VIAL IV PUSH (19:22)
[2022-02-03 19:23] LABS: Lipase 38 U/L (23-300)
[2022-02-03] MEDS: KETOROLAC 30 MG/ML VIAL (*BKC) IV PUSH (21:17)
[2022-02-03 21:52] LABS: Add Urine Microscopic? YES; Appearance Urine Clear (Clear); Bilirubin Urine 1+ (Negative); Blood Urine 3+ (Negative); Color Urine Yellow (Yellow); Glucose Urine UA Negative (Negative); Ketones Urine Negative (Negative); Leukocyte Esterase Ur Negative LEU/UL (Negative); Nitrate Urine Negative (Negative); Protein Urine 1+ mg/dL (Negative); Specific Grav Ur >= 1.030 (1.001-1.035); Urobilinogen Urine 0.2 mg/dL (<2.0)
[2022-02-03 21:59] VITALS: BP 147/86; PULSE 81; RESP 20; O2SAT 99
[2022-02-03 21:59] LABS: Bacteria Urine Trace /hpf; Mucus Urine Rare /lpf; RBC Urine >75 /hpf (0-2); Squamous Epithelial Cell Urine Occasional /hpf (Few); WBC Urine 0-3 /hpf
== END 2022-02-03 22:09 | disposition home or self-care (01) ==
PROVIDERS: Emergency Medicine; Emergency Provider Emergency Medicine; PCP Family Medicine
DX: N13.2 Hydronephrosis with renal and ureteral calculous obstruction (principal); I10 Essential (primary) hypertension; E78.5 Hyperlipidemia, unspecified; E66.9 Obesity, unspecified; Z68.32 Body mass index [BMI] 32.0-32.9, adult; Z87.891 Personal history of nicotine dependence
CPT/HCPCS: 36415; 74018; 74176; 80053; 81001; 83690; 85025; 96361; 96374; 96375; 99284; J1170; J1885; J2405; J7030

== ENCOUNTER → 2022-02-24 09:36 | Outpatient (CLI) | payer BC, SELFPAY ==
--- NOTE | ~2022-02-24 | MR_ITS ---
EXAMINATION: MR thoracic spine wo con DATE: 02/24/2022 10:06 INDICATION: Thoracic back pain. TECHNIQUE: Magnetic resonance imaging (MRI) of the thoracic spine was performed without intravenous c ontrast. Sagittal localizer T1-weighted FSE of the cervical spine was obtained. Thoracic spine sequen silvia included sagittal T2-weighted FSE, sagittal T1-weighted FSE, sagittal T2-weighted FS FSE, and axi al T2-weighted FSE. COMPARISON: CT abdomen and pelvis 02/03/2022 FINDINGS: Bone alignment is normal. There is mild chronic anterior wedging of T6 and T7 vertebral bod ies. There is a hemangioma in T12 vertebral body. There is mildly decreased disc height at T6-T7 and T7-T8. At T8-T9, there is a left central extrusion with mild central canal stenosis. There is multile regino mild to moderate facet joint osteoarthritis. On the right, there is mild neural foraminal stenosi s at T4-T5, T5-T6, and T7-T8. On the left, there is mild neural foraminal stenosis at T5-T6 and T6-T7 . The spinal cord signal intensity is normal. IMPRESSION: 1. Mild thoracic spondylosis. Reviewed, dictated and finalized at location A.
== END ==
PROVIDERS: PCP Family Medicine; Visit Provider Nurse Practitioner Family
DX: M54.6 Pain in thoracic spine (principal); M47.814 Spondylosis without myelopathy or radiculopathy, thoracic region
CPT/HCPCS: 72146

== ENCOUNTER 2022-04-22 14:01 | Outpatient (CLI) | payer BC, SELFPAY ==
--- NOTE | ~2022-04-22 | XR_ITS ---
EXAMINATION: XR toe 2nd RT min 2V DATE: 04/22/2022 14:37 INDICATION: Right second toe pain. TECHNIQUE: 4 views of right second toe were obtained. COMPARISON: None. FINDINGS: Bone alignment is normal. No fracture. Joint spaces are normal. IMPRESSION: 1. No fracture. Reviewed, dictated and finalized at location A. IMPRESSION: 1. No fracture.
--- NOTE | ~2022-04-22 | XR_ITS ---
EXAMINATION: XR_FOOTSTNDR3_CR DATE: 04/22/2022 14:37 INDICATION: Right foot pain. TECHNIQUE: 4 views of right foot standing were obtained. COMPARISON: None. FINDINGS: Bone alignment is normal. No fracture. There is a benign bone island in calcaneus. There is an old healed fracture of diaphysis of fifth proximal phalanx. There is mild osteoarthritis of first metatarsophalangeal joint and talonavicular joint and some of the interphalangeal joints. There are enthesophytes at the posterior and plantar aspects of calcaneal tuberosity. IMPRESSION: 1. Mild polyarticular osteoarthritis. Reviewed, dictated and finalized at location A.
[2022-04-22 15:03] LABS: Basophils Percent Auto 0.5 % (0.2-1.2); Eosinophils Percent Auto 0.5 % (0-4.4); Hematocrit 45.6 % (42.0-52.0); Hemoglobin 14.6 g/dL (14.0-18.0); Immature Granulocyte Absolute 0.08 K/mm3 (0.00-0.031); Lymphocytes Absolute Auto 2.65 K/mm3 (0.9-3.2); Lymphocytes Percent Auto 34.2 % (18.3-44.2); Mean Corpuscular Hemoglobin 25.7 pg (26-34); Mean Corpuscular Volume 80.4 fl (80-100); Mean Platelet Volume 9.9 fl (7.4-10.4); Monocytes Absolute Auto 0.5 K/mm3 (0.1-0.6); Monocytes Percent Auto 5.8 % (2.6-8.5); Neutrophils Absolute Auto 4.5 K/mm3 (1.3-6.7); Platelet Count Result 203 k/mm3 (150-375); Red Blood Count 5.67 M/mm3 (4.6-6.20); Red Cell Distribution Width 14.8 % (11.5-14.5); White Blood Count 7.8 K/mm3 (4.5-10.0)
[2022-04-22 15:06] LABS: Uric Acid 7.5 mg/dL (3.5-8.5)
== END 2022-04-22 14:02 | disposition home or self-care (01) ==
PROVIDERS: PCP Family Medicine; Visit Provider Physician Assistant
DX: M79.671 Pain in right foot (principal); M10.9 Gout, unspecified; M19.071 Primary osteoarthritis, right ankle and foot
CPT/HCPCS: 36415; 73630; 73660; 84550; 85025

== ENCOUNTER 2023-01-03 08:58 | Outpatient (CLI) | payer MEDICARE, SELFPAY ==
--- NOTE | ~2023-01-03 | XR_ITS ---
XR abdomen/kub 1V 01/03/2023 09:21 INDICATION: Kidney stone TECHNIQUE: KUB COMPARISON: 02/03/2022 FINDINGS: Bowel gas pattern is normal. There is no evidence of free air, mass, organomegaly, ascites or obstruction. There are punctate stones overlying the lower pole of the right kidney. The bones ap pear intact. There are surgical fusion changes at the lumbosacral junction. IMPRESSION: 1: Right nephrolithiasis. Reviewed, dictated and finalized at location L. IMPRESSION: 1: Right nephrolithiasis.
== END 2023-01-03 08:59 | disposition home or self-care (01) ==
LOC: ANHIMG 09:02
PROVIDERS: PCP Family Medicine; Visit Provider Urology
DX: N20.0 Calculus of kidney (principal)
CPT/HCPCS: 74018

== ENCOUNTER 2023-10-24 11:41 | Outpatient (CLI) | payer MEDICARE, SELFPAY ==
[2023-10-24 12:18] LABS: Basophils Percent Auto 0.4 % (0.2-1.2); Eosinophils Absolute Auto 0.1 K/mm3 (0-0.3); Eosinophils Percent Auto 0.7 % (0-4.4); Hematocrit 47.7 % (42.0-52.0); Hemoglobin 15.4 g/dL (14.0-18.0); Immature Granulocyte Absolute 0.03 K/mm3 (0.00-0.031); Immature Granulocyte Percent A 0.4 % (0-0.5); Lymphocytes Absolute Auto 2.36 K/mm3 (0.9-3.2); Lymphocytes Percent Auto 33.1 % (18.3-44.2); Mean Corpuscular HGB Conc 32.3 g/dl (32-36); Mean Corpuscular Hemoglobin 26.2 pg (26-34); Mean Corpuscular Volume 81.3 fl (80-100); Mean Platelet Volume 10.1 fl (7.4-10.4); Monocytes Absolute Auto 0.4 K/mm3 (0.1-0.6); Monocytes Percent Auto 5.6 % (2.6-8.5); Neutrophils Absolute Auto 4.3 K/mm3 (1.3-6.7); Neutrophils Percent Auto 59.8 % (45.5-73.1); Platelet Count Result 204 k/mm3 (150-375); Red Blood Count 5.87 M/mm3 (4.6-6.20); Red Cell Distribution Width 15.1 % (11.5-14.5); White Blood Count 7.1 K/mm3 (4.5-10.0)
[2023-10-24 12:22] LABS: Appearance Urine Clear (Clear); Bilirubin Urine Negative (Negative); Blood Urine Negative (Negative); Color Urine Yellow (Yellow); Glucose Urine UA Negative (Negative); Ketones Urine Negative (Negative); Leukocyte Esterase Ur Negative LEU/UL (NEGATIVE); Nitrate Urine Negative (Negative); Protein Urine Negative (Negative); Specific Grav Ur 1.008 (1.001-1.035); Urobilinogen Urine 0.2 mg/dL (<2.0); pH Urine 6.5 (5.0-9.0)
[2023-10-24 12:31] LABS: Alanine Aminotransferase 35 U/L (6-50); Albumin Level 4.4 g/dL (3.5-5.1); Alkaline Phosphatase 61 U/L (38-126); Anion Gap 8 mmol/L (8-16); Aspartate Amino Transferase 30 U/L (17-59); Bilirubin,Total 0.4 mg/dL (0.2-1.3); Blood Urea Nitrogen 11 mg/dL (9-20); Calcium 10.1 mg/dL (8.4-10.2); Carbon Dioxide 26 mmol/L (22-30); Chloride 108 mmol/L (98-107); Estimated Glomerular Filt Rate > 60; Glucose 95 mg/dL (65-110); Potassium 4.3 mmol/L (3.4-5.0); Sodium 142 mmol/L (137-145)
[2023-10-24 12:35] LABS: Hemoglobin A1C 6.3 % (<5.7)
[2023-10-24 12:47] LABS: Add Urine Microscopic? NO
[2023-10-24 13:37] LABS: Folic Acid > 20.0 ng/mL (2.76->20)
== END 2023-10-24 11:42 | disposition home or self-care (01) ==
LOC: ANHLAB 11:45
PROVIDERS: PCP Family Medicine; Visit Provider Physician Assistant
DX: N20.0 Calculus of kidney (principal); E11.9 Type 2 diabetes mellitus without complications; G62.9 Polyneuropathy, unspecified; Z01.818 Encounter for other preprocedural examination
CPT/HCPCS: 36415; 80053; 81003; 82607; 82746; 83036; 85025; 87081; 87086

== ENCOUNTER 2023-10-24 14:28 | Outpatient (CLI) | payer MEDICARE, SELFPAY ==
--- NOTE | ~2023-10-24 | MR_ITS ---
EXAMINATION: MR lumbar spine wo con DATE: 10/24/2023 15:28 INDICATION: Lumbago TECHNIQUE: Magnetic resonance imaging (MRI) of the lumbar spine was performed without intravenous con trast. Sequences included sagittal T2-weighted FSE, sagittal T2-weighted FS FSE, sagittal T1-weighted FSE, and axial T2-weighted FSE. COMPARISON: 02/08/2021 FINDINGS: Alignment is normal. L5-S1 anterior and posterior spinal fusion with interbody bone graft cage and bi lateral vertical karen and pedicle screw fixation. Vertebral body heights are normal. T1 hyperintense h emangioma at L1. Bone marrow signal is otherwise normal. Severe disc height loss at L4-L5. Mild disc height loss with annular fissures and posterior disc extrusions at L2-L3 and L3-L4. The conus medulla ris terminates at L2. There is normal signal in the caudal spinal cord. Paravertebral soft tissues ar e unremarkable. The following disc levels are specifically discussed: T12-L1: The disc does not extend beyond the endplate margin. There is mild right and moderate left fa cet joint osteoarthritis. There is no neural foraminal stenosis. There is no central canal stenosis. L1-L2: The disc does not extend beyond the endplate margin. There is mild bilateral facet joint osteo arthritis. There is no neural foraminal stenosis. There is no central canal stenosis. L2-L3: Disc is bulging with annular fissure and small right paracentral disc extrusion with disc mate rial extending couple millimeter cephalad to the inferior endplate of L2. There is mild bilateral fac et joint osteoarthritis. There is moderate bilateral neural foraminal stenosis. There is mild central canal stenosis. L3-L4: Disc is bulging with superimposed right paracentral annular fissure and disc extrusion with di sc material extending couple millimeter cephalad and caudal to the level of the endplates. There is m ild bilateral facet joint osteoarthritis. There is moderate bilateral neural foraminal stenosis. Ther e is moderate central canal stenosis with prominent narrowing of the right lateral recess. L4-L5: Disc is mildly bulging. There is moderate bilateral facet joint osteoarthritis. There is moder ate bilateral neural foraminal stenosis. There is mild central canal stenosis. L5-S1: Disc space is fused. There is also bilateral posterior spinal fusion.. There is moderate bilat eral neural foraminal stenosis. There is no central canal stenosis. IMPRESSION: 1. Severe lumbar spondylosis with combined instrumented anterior and posterior spinal fusion at L5-S1 . Reviewed, dictated and finalized at location L. IMPRESSION: 1. Severe lumbar spondylosis with combined instrumented anterior and posterior spinal fusion at L5-S1.
== END 2023-10-24 14:29 ==
LOC: MICIMG 14:32
PROVIDERS: PCP Family Medicine; Visit Provider Nurse Practitioner Family
DX: M47.896 Other spondylosis, lumbar region (principal); Z98.1 Arthrodesis status
CPT/HCPCS: 72148

== ENCOUNTER 2024-01-05 09:18 | Outpatient (CLI) | payer MEDICARE, SELFPAY ==
--- NOTE | ~2024-01-05 | XR_ITS ---
EXAMINATION: XR abdomen/kub 1V DATE: 01/05/2024 09:35 INDICATION: Kidney stones TECHNIQUE: A supine view of the abdomen on 2 radiographs was obtained. COMPARISON: 01/03/2023 FINDINGS: A couple 2 mm stones project over the lower right kidney. No left-sided nephrolithiasis. No stones se en along the course of ureters. Cholecystectomy clips in right upper quadrant. Postoperative change o f likely bilateral inguinal hernia repairs. Findings Limited L5-S1 anterior and posterior spinal fusi on with interbody fusion devices and bilateral vertical karen and pedicle screw fixation. Spinal stimul ator projects of the left flank with leads extending cephalad along the thoracic spine with distal ti p at the level of T9. Lung bases are clear. Heart size normal. Normal bowel gas pattern. IMPRESSION: 1. A couple 2 mm stones in the lower pole of the right kidney. Reviewed, dictated and finalized at location A.
== END 2024-01-05 09:19 | disposition home or self-care (01) ==
LOC: ANHIMG 09:21
PROVIDERS: PCP Family Medicine; Visit Provider Urology
DX: N20.0 Calculus of kidney (principal)
CPT/HCPCS: 74018

== ENCOUNTER 2024-04-11 14:57 | Inpatient (IN) | payer MEDICARE, SELFPAY ==
--- NOTE | ~2024-04-11 | CT_ITS ---
EXAMINATION: CT abdomen pelvis w con DATE: 04/11/2024 17:01 INDICATION: Rectal pain. TECHNIQUE: Computed tomography (CT) of the abdomen and pelvis was performed with 100 mL Omnipaque 350 intravenous contrast. Automated exposure control and iterative reconstruction technique were employe d. The dose-length product was 1720.64 mGy-cm. COMPARISON: CT abdomen and pelvis 02/03/2022 FINDINGS: The visualized portions of lung bases demonstrate mild atelectasis. No pleural effusion. Th e heart size is normal. There are coronary artery calcifications. No pericardial effusion. The liver and spleen are normal. There are changes of cholecystectomy. The pancreas and adrenal glands are norm al. There are cysts in the kidneys measuring up to 9 mm on the right. There are 2 stones in right kid sunny measuring up to 3 mm. There are 3 stones in left kidney measuring up to 4 mm. The prostate is mod erately enlarged. There is diverticulosis of the colon without evidence of diverticulitis. The append ix is normal. There are no dilated loops of bowel. There are no pathologically enlarged lymph nodes. There is a 1.6 x 2.7 x 0.6 cm perianal abscess. There is no free intraperitoneal fluid. Epidural elec trodes are noted. There is severe lumbar spondylosis. There are changes of anterior and posterior fus ion procedures at L5-S1. IMPRESSION: 1. 1.6 x 2.7 x 0.6 cm perianal abscess. Reviewed, dictated and finalized at location A.
[2024-04-11 15:03] VITALS: BP 133/70; PULSE 103; RESP 18; TEMP 36.4; O2SAT 99
--- NOTE | 2024-04-11 15:27 | ED.GENADULT ---
HPI - General Adult General Chief complaint: Unspecified Stated complaint: anal pain Time Seen by Provider: 04/11/24 15:27 Source: patient History of Present Illness HPI narrative: 69 years old white male drove himself to the emergency room complaining of pain at the anal area worse with defecation, sitting, certain position. Nothing make it better. Patient denies any fever, chills, nausea, vomiting, rectal bleed or discharge or constipation or diarrhea.. History of hypertension, diabetes, hyperlipidemia Related Data Allergies Allergy/AdvReac Type Severity Reaction Status Date / Time No Known Allergies Allergy Verified 04/11/24 14:59 Review of Systems Review of Systems: All systems reviewed & are unremarkable except as noted in HPI and below PMFSH Past Medical History Medical History Attention deficit disorder (ADD) in adult Chronic bilateral low back pain Diabetic neuropathy History of kidney stones HLD (hyperlipidemia) HTN (hypertension) Obesity Tear of medial meniscus of right knee Type 2 diabetes mellitus with hyperglycemia Surgical History Surgical History H/O lithotripsy (~2013) H/O lithotripsy (~2014) History of cholecystectomy (~1996) History of hernia repair (~2001) History of lumbar surgery (~2017) L1-S2 Family History Family History Mother Patient's mother is , Onset Age: 63 Heart disease Father Patient's father is , Onset Age: 70 Heart disease Social History Social History Social History: Smoking packs per day: 1 Smoking cigarettes per day: 20.0 Years smoked: 20 Smoking pack-years: 20.00 Smoking status: Former smoker Tobacco type: cigarettes Second hand tobacco smoke exposure: No Smoking end date: 08/14/97 Additional smoking assessment comments: quit 22 years ago Alcohol intake: never Alcohol use details: quit 22 years ago Substance use: never Substance use type: does not use Do You Feel Safe in your Home?: Yes Lack of Transportation: No Lack of Food: Never True Current Housing: I Have Housing Concerned About Future Housing: No Difficulty Paying Gas/Electric Bills: No Difficulty Paying for Meds: No Currently Unemployed: YES Education: Don't Know Difficulty w/ Childcare or Family Care: No Living arrangements: with family Occupation/Education: occupation Gender identity (if verbalized by the patient): Male Sexual Orientation (if Verbalized by the Patient): Straight or Heterosexual Spiritual care concerns: No Exam Narrative: General appearance: Well-developed, well-nourished Skin: Normal color Head: Normocephalic, nontraumatic Eyes: Clear conjunctiva Chest and respiratory: Airway patent, no respiratory distress, no accessory muscle use Heart: Regular rate/rhythm Abdomen: Soft, nontender, no organomegaly, quiet bowel sounds rectal exam showed severe tenderness at 5:00 a.m., indurated skin, otherwise no discharge, no mass Vascular: Normal peripheral pulses, normal capillary refill. Neurologic: Alert and oriented ?3, LEAN CONSULTANT is normal as tested, no gross motor deficit Course Vital Signs Vital signs: Vital Signs Temperature 36.4 C 04/11/24 15:03 Pulse Rate 103 H 04/11/24 15:03 Respiratory Rate 18 04/11/24 15:03 Blood Pressure 133/70 04/11/24 15:03 Pulse Oximetry 99 04/11/24 15:03 Temperature 36.4 C 04/11/24 15:03 Pulse Rate 103 H 04/11/24 15:03 Respirator
[2024-04-11 15:51] LABS: Add Urine Microscopic? YES; Appearance Urine Clear (Clear); Bacteria Urine None Seen /hpf; Bilirubin Urine Negative (Negative); Blood Urine Negative (Negative); Color Urine Yellow (Yellow); Glucose Urine UA Negative (Negative); Ketones Urine Negative (Negative); Leukocyte Esterase Ur Trace LEU/UL (Negative); Nitrate Urine Negative (Negative); Non Pathogenic Casts 0-2; Protein Urine Negative (Negative); RBC Urine 0-2 /hpf (0-2); Specific Grav Ur 1.019 (1.001-1.035); Squamous Epithelial Cell Urine None Seen /hpf (Few); WBC Urine 0-5 /hpf (0-3)
[2024-04-11] MEDS: SODIUM CHLORIDE 0.9% IV 1,000 ML 999 ML IV CONT (16:26)
[2024-04-11 16:27] LABS: Basophils Percent Auto 0.3 % (0.2-1.2); Eosinophils Percent Auto 0.2 % (0-4.4); Hematocrit 44.2 % (42.0-52.0); Hemoglobin 14.3 g/dL (14.0-18.0); Immature Granulocyte Absolute 0.05 K/mm3 (0.00-0.031); Immature Granulocyte Percent A 0.4 % (0-0.5); Lymphocytes Absolute Auto 2.37 K/mm3 (0.9-3.2); Lymphocytes Percent Auto 20.4 % (18.3-44.2); Mean Corpuscular HGB Conc 32.4 g/dl (32-36); Mean Corpuscular Hemoglobin 26.4 pg (26-34); Mean Corpuscular Volume 81.7 fl (80-100); Mean Platelet Volume 10.4 fl (7.4-10.4); Monocytes Absolute Auto 0.7 K/mm3 (0.1-0.6); Monocytes Percent Auto 6.4 % (2.6-8.5); Neutrophils Absolute Auto 8.4 K/mm3 (1.3-6.7); Neutrophils Percent Auto 72.3 % (45.5-73.1); Platelet Count Result 244 k/mm3 (150-375); Red Blood Count 5.41 M/mm3 (4.6-6.20); Red Cell Distribution Width 14.5 % (11.5-14.5); White Blood Count 11.6 K/mm3 (4.5-10.0)
[2024-04-11 16:38] LABS: Alanine Aminotransferase 19 U/L (6-50); Albumin Level 4.5 g/dL (3.5-5.1); Alkaline Phosphatase 52 U/L (38-126); Anion Gap 14 mmol/L (4-12); Aspartate Amino Transferase 22 U/L (17-59); Bilirubin,Total 0.5 mg/dL (0.2-1.3); Blood Urea Nitrogen 12 mg/dL (9-20); Calcium 9.6 mg/dL (8.4-10.2); Carbon Dioxide 23 mmol/L (22-30); Chloride 102 mmol/L (98-107); Estimated CRCL calculation 71 ml/min; Estimated Glomerular Filt Rate > 60; Glucose 95 mg/dL (65-110); Lipase 46 U/L (23-300); Sodium 139 mmol/L (137-145)
[2024-04-11] MEDS: ONDANSETRON INJ 4 MG/2 ML VIAL IV PUSH (17:41)
[2024-04-11] MEDS: PIPERACILLN/TAZ 3.375GM/NS50ML 3.375 GM/50 ML BAG IVPB ×2 (17:42→23:30)
[2024-04-11] MEDS: HYDROmorphone HCL INJ (*CRX) 1 MG/ML SYR 0.5 MG IV PUSH ×3 (17:42→23:30)
--- NOTE | 2024-04-11 18:00 | PC.NURSE ---
this RN discussed blood culture needs prior to antibiotic administration. Dr. Oliveira did not want cultures to be drawn prior to antibiotics.
[2024-04-11 18:13] VITALS: BP 115/67; PULSE 91; RESP 17; TEMP 37.4; O2SAT 96
--- NOTE | 2024-04-11 18:17 | PM.IMHP ---
H&P: HPI History of Present Illness Date/Time: 04/11/24 18:17 Chief Complaint: Anal Pain Narrative: 69-year-old male with PMHx: of HTN, hyperlipidemia, type 2 diabetes on Trulicity chronic bilateral low back pain, presented to the emergency room today with complaint of ongoing rectal pain for the past 3 days. Patient reports he started noticing pain when trying to have a bowel movement, as well as sitting in certain position, today the pain worsened while trying to have a bowel movement prompting Mr. Taylor to come to the emergency room for further evaluation. He denies any rectal bleeding, or recent trauma, he denies any fever chills nausea vomiting. ED Work-up reveals:: Initial vitals: b/p, rr, pr, sp02 % on RA or NC, T: 97.6, LA 103, RR 18, SpO2 99%, b/p: 133/70, WBC elevated at 11.5, UA reveals trace leukocyte Estrace, patient tender on exam, CT abdomen and pelvis with IV contrast showed very anal abscess, general surgeon Dr. Saleem consulted, patient admitted for further evaluation of perianal abscess. Review of Systems Review of Systems: All systems reviewed & are unremarkable except as noted in HPI and below PMFSH Past Medical History Medical History Attention deficit disorder (ADD) in adult Chronic bilateral low back pain Diabetic neuropathy History of kidney stones HLD (hyperlipidemia) HTN (hypertension) Obesity Tear of medial meniscus of right knee Type 2 diabetes mellitus with hyperglycemia Surgical History Surgical History H/O lithotripsy (~2013) H/O lithotripsy (~2014) History of cholecystectomy (~1996) History of hernia repair (~2001) History of lumbar surgery (~2017) L1-S2 Family History Family History Mother Patient's mother is , Onset Age: 63 Heart disease Father Patient's father is , Onset Age: 70 Heart disease Social History Social History Social History: Smoking packs per day: 1 Smoking cigarettes per day: 20.0 Years smoked: 20 Smoking pack-years: 20.00 Smoking status: Former smoker Tobacco type: cigarettes Second hand tobacco smoke exposure: No Smoking end date: 08/14/99 Additional smoking assessment comments: quit 22 years ago Alcohol intake: never Alcohol use details: quit 22 years ago Substance use: never Substance use type: does not use Do You Feel Safe in your Home?: Yes Lack of Transportation: No Lack of Food: Never True Current Housing: I Have Housing Concerned About Future Housing: No Difficulty Paying Gas/Electric Bills: No Difficulty Paying for Meds: No Currently Unemployed: No Education: Don't Know Difficulty w/ Childcare or Family Care: No Living arrangements: with family Occupation/Education: occupation Gender identity (if verbalized by the patient): Male Sexual Orientation (if Verbalized by the Patient): Straight or Heterosexual Spiritual care concerns: No Meds Home Medications and Allergies Home Medications Medication Instructions Recorded Confirmed Type blood sugar diagnostic (Blood #100 ea 11/10/20 04/11/24 Rx Glucose Test strips) blood-glucose meter #1 ea 11/10/20 04/11/24 Rx lancets #200 ea 11/10/20 04/11/24 Rx methylphenidate HCl 20 mg tablet 20 mg PO TID #90 tabs 02/20/23 04/11/24 Rx valsartan 80 mg tablet 80 mg PO DAILY #90 tabs 09/15/23 04/11/24 Rx fenofibrate 160 mg tablet 160 mg PO DAILY #90 tabs 10/24/23 04/11/24 Rx dulaglutide 0.75 mg/0.5 mL 0.75 mg (0.5 mL) subcut WEEKLY #2 11/17/23 04/11/24 Rx subcutaneous pen injector mL (Trulicity) gabapentin 100 mg capsule 100 mg PO BID #60 caps 12/13/23 04/11/24 Rx atorvastatin 20 mg tablet 20 mg PO DAILY #90 tabs 02/06/24 04/11/24 Rx Allergies Allergy/AdvReac Type Sever
[2024-04-11 19:57] VITALS: BMI 34.4
--- NOTE | 2024-04-11 20:01 | ADMGEN ---
This patient, Keon Taylor Jr., was admitted to Medical Room 342-01. Patient/family oriented to hospital policies and general routines including ID bracelet, bed and alarms, visiting hours, pain management, procedures, bathroom and other care routines, personal items, smoking policy, room service/diet, and visiting hours. Information on how to activate the Rapid Response Team has been discussed. Patient/Family are encouraged to report perceived risks to care and to ask questions if they do not understand what they are told or what they should do.
[2024-04-11 20:02] VITALS: TEMP 37.4
[2024-04-11] MEDS: SODIUM CHLORIDE 0.9% IV 1,000 ML 125 ML IV CONT (20:25)
--- NOTE | 2024-04-11 22:18 | ED.GENADULT ---
HPI - General Adult General Chief complaint: Unspecified Stated complaint: anal pain Time Seen by Provider: 04/11/24 15:27 Source: patient Related Data Allergies Allergy/AdvReac Type Severity Reaction Status Date / Time No Known Allergies Allergy Verified 05/08/24 16:00 [facility] Past Medical History Medical History Attention deficit disorder (ADD) in adult Chronic bilateral low back pain Diabetic neuropathy History of kidney stones HLD (hyperlipidemia) HTN (hypertension) Obesity Tear of medial meniscus of right knee Type 2 diabetes mellitus with hyperglycemia Surgical History Surgical History H/O lithotripsy (~2013) H/O lithotripsy (~2014) History of cholecystectomy (~1996) History of drainage of abscess 04/12/2024 - Incision and drainage perirectal abscess, anal fistulotomy History of hernia repair (~2001) History of lumbar surgery (~2017) L1-S2 Family History Family History Mother Patient's mother is , Onset Age: 63 Heart disease Father Patient's father is , Onset Age: 70 Heart disease Social History Social History Social History: Smoking packs per day: 1 Smoking cigarettes per day: 20.0 Years smoked: 20 Smoking pack-years: 20.00 Smoking status: Former smoker Tobacco type: cigarettes Second hand tobacco smoke exposure: No Smoking end date: 08/14/99 Additional smoking assessment comments: quit smoking 25 years ago Alcohol intake: never Alcohol use details: quit 22 years ago Substance use: never Substance use type: marijuana Other substance usage details: gummies x1/week Do You Feel Safe in your Home?: Yes Lack of Transportation: No Lack of Food: Never True Current Housing: I Have Housing Concerned About Future Housing: No Difficulty Paying Gas/Electric Bills: No Difficulty Paying for Meds: No Currently Unemployed: No Education: Don't Know Difficulty w/ Childcare or Family Care: No Living arrangements: with family Occupation/Education: occupation Gender identity (if verbalized by the patient): Male Sexual Orientation (if Verbalized by the Patient): Straight or Heterosexual Spiritual care concerns: No Course Vital Signs Vital signs: Vital Signs Temperature 97.6 F 04/11/24 15:03 Pulse Rate 103 H 04/11/24 15:03 Respiratory Rate 18 04/11/24 15:03 Blood Pressure 133/70 04/11/24 15:03 Pulse Oximetry 99 04/11/24 15:03 Temperature 98.5 F 04/12/24 12:55 Pulse Rate 90 04/12/24 12:55 Respiratory Rate 18 04/12/24 12:55 Blood Pressure 134/62 04/12/24 12:55 Pulse Oximetry 97 04/12/24 12:55 Oxygen Delivery Room Air 04/12/24 10:52 Oxygen Flow Rate 10 04/12/24 10:15 Medical Decision Making Vital Signs Vital Signs: Vital Signs Temperature 97.6 F 04/11/24 15:03 Pulse Rate 103 H 04/11/24 15:03 Respiratory Rate 18 04/11/24 15:03 Blood Pressure 133/70 04/11/24 15:03 Pulse Oximetry 99 04/11/24 15:03 Temperature 98.5 F 04/12/24 12:55 Pulse Rate 90 04/12/24 12:55 Respiratory Rate 18 04/12/24 12:55 Blood Pressure 134/62 04/12/24 12:55 Pulse Oximetry 97 04/12/24 12:55 Oxygen Delivery Room Air 04/12/24 10:52 Oxygen Flow Rate 10 04/12/24 10:15 Lab Data 04/12/24 05:19 04/12/24 05:19 Labs: Lab Results 04/11/24 04/11/24 04/11/24 Range/Units 15:42 16:09 23:34 WBC 11.6 H (4.5-10.0) K/mm3 RBC 5.41 (4.6-6.20) M/mm3 Hgb 14.3 (14.0-18.0) g/dL Hct 44.2 (42.0-52.0) % MCV 81.7 (80-100) fl MCH 26.4 (26-34) pg MCHC 32.4 (32-36) g/dl RDW 14.5 (11.5-14.5) % Plt Count 244 (150-375) k/mm3 MPV 10.4 (7.4-10.4)
[2024-04-11 23:41] VITALS: BP 123/58; PULSE 74; RESP 20; TEMP 36.7; O2SAT 98
[2024-04-11 23:43] LABS: Glucose Point of Care 122 mg/dl (65-105)
[2024-04-12] VITALS (12 sets, daily range): BP systolic 100–136; BP diastolic 46–80; PULSE 62–90; RESP 16–20; TEMP 36.1–36.9; O2SAT 96–99
[2024-04-12] MEDS: HYDROmorphone HCL INJ (*CRX) 1 MG/ML SYR 0.5 MG IV PUSH (05:10)
[2024-04-12] MEDS: PIPERACILLN/TAZ 3.375GM/NS50ML 3.375 GM/50 ML BAG IVPB ×2 (05:11→10:40)
[2024-04-12] MEDS: SODIUM CHLORIDE 0.9% IV 1,000 ML 125 ML IV CONT (05:12)
[2024-04-12 05:49] LABS: Basophils Percent Auto 0.3 % (0.2-1.2); Eosinophils Percent Auto 0.4 % (0-4.4); Hematocrit 39.1 % (42.0-52.0); Hemoglobin 12.6 g/dL (14.0-18.0); Immature Granulocyte Absolute 0.04 K/mm3 (0.00-0.031); Immature Granulocyte Percent A 0.4 % (0-0.5); Lymphocytes Absolute Auto 2.35 K/mm3 (0.9-3.2); Lymphocytes Percent Auto 24.2 % (18.3-44.2); Mean Corpuscular HGB Conc 32.2 g/dl (32-36); Mean Corpuscular Hemoglobin 26.5 pg (26-34); Mean Corpuscular Volume 82.1 fl (80-100); Mean Platelet Volume 10.3 fl (7.4-10.4); Monocytes Absolute Auto 0.6 K/mm3 (0.1-0.6); Monocytes Percent Auto 6.5 % (2.6-8.5); Neutrophils Absolute Auto 6.6 K/mm3 (1.3-6.7); Neutrophils Percent Auto 68.2 % (45.5-73.1); Platelet Count Result 204 k/mm3 (150-375); Red Blood Count 4.76 M/mm3 (4.6-6.20); Red Cell Distribution Width 14.6 % (11.5-14.5); White Blood Count 9.7 K/mm3 (4.5-10.0)
[2024-04-12 06:00] LABS: Alanine Aminotransferase 15 U/L (6-50); Albumin Level 3.5 g/dL (3.5-5.1); Alkaline Phosphatase 46 U/L (38-126); Anion Gap 11 mmol/L (4-12); Aspartate Amino Transferase 26 U/L (17-59); Bilirubin,Total 0.6 mg/dL (0.2-1.3); Blood Urea Nitrogen 13 mg/dL (9-20); Calcium 8.4 mg/dL (8.4-10.2); Carbon Dioxide 21 mmol/L (22-30); Chloride 106 mmol/L (98-107); Estimated CRCL calculation 72 ml/min; Estimated Glomerular Filt Rate > 60; Glucose 126 mg/dL (65-110); Sodium 138 mmol/L (137-145)
--- NOTE | 2024-04-12 07:23 | PM.CNGS ---
Assessment and Plan Assessment and plan (1) Perirectal abscess: Code(s): K61.1 - Rectal abscess Status: Acute Assessment and Plan: Plan to proceed with exam under anesthesia as well as incision and drainage of perirectal abscess. I discussed the procedure and usual postoperative care, length of recovery and healing. I also explained that there is a 25-30% chance of a fistula in ANO forming after incision and drainage. I explained that this could require a 2nd minor procedure. I also explained that he may have a drainage catheter or tube in the abscess following surgery. All questions were answered. He understands and agrees to go ahead. (2) Diabetes type 2, controlled: Qualifiers: Diabetes mellitus termite technician insulin use: without termite technician use Diabetes mellitus complication status: with unspecified complications Qualified Code(s): E11.8 - Type 2 diabetes mellitus with unspecified complications Code(s): E11.9 - Type 2 diabetes mellitus without complications Status: Acute (3) SKIP on CPAP: Code(s): G47.33 - Obstructive sleep apnea (adult) (pediatric); Z99.89 - Dependence on other enabling machines and devices Status: Acute (4) HTN (hypertension): Qualifiers: Hypertension type: primary hypertension Qualified Code(s): I10 - Essential (primary) hypertension Code(s): I10 - Essential (primary) hypertension Status: Acute History of Present Illness Consult details Consult date: 04/12/24 Reason for consult: other (Rectal pain) Requesting physician: Chelsy Oliveira MD Narrative: Patient is a 69-year-old diabetic man who has a 3 day history of rectal pain. He has noticed some pressure and swelling sensation and it is painful even to try to sit and walk. He came to the emergency room where he was noted to be afebrile but had tachycardia and leukocytosis. CT scan showed perirectal abscess 2 cm in size. Patient seen in consultation now with plans for surgical treatment this morning. He has had no previous perirectal abscesses or anorectal problems. Review of Systems Review of Systems: All systems reviewed & are unremarkable except as noted in HPI and below (HPI) [facility] Past Medical History Medical History Attention deficit disorder (ADD) in adult Chronic bilateral low back pain Diabetic neuropathy History of kidney stones HLD (hyperlipidemia) HTN (hypertension) Obesity Tear of medial meniscus of right knee Type 2 diabetes mellitus with hyperglycemia Surgical History Surgical History H/O lithotripsy (~2013) H/O lithotripsy (~2014) History of cholecystectomy (~1996) History of hernia repair (~2001) History of lumbar surgery (~2017) L1-S2 Family History Family History Mother Patient's mother is , Onset Age: 63 Heart disease Father Patient's father is , Onset Age: 70 Heart disease Social History Social History Social History: Smoking packs per day: 1 Smoking cigarettes per day: 20.0 Years smoked: 20 Smoking pack-years: 20.00 Smoking status: Former smoker Tobacco type: cigarettes Second hand tobacco smoke exposure: No Smoking end date: 08/14/99 Additional smoking assessment comments: quit 22 years ago Alcohol intake: never Alcohol use details: quit 22 years ago Substance use: never Substance use type: does not use Do You Feel Safe in your Home?: Yes Lack of Transportation: No Lack of Food: Never True Current Housing: I Have Housing Concerned About Future Housing: No Difficulty Paying Gas/Electric Bills: No Difficulty Paying for Meds: No Currently Unemployed: No Education: Don't Know Difficulty w/ Childcare or Family Care: No Living a
--- NOTE | 2024-04-12 07:28 | WPDANESEPPF ---
Anes - Initial Pre Proc Eval Procedure: Operation Date: 04/12/24 09:00 Proposed Procedures p Incision and Drainage Alana-Rectal Abscess - Fabiano Saleem MD Date/Time: 04/12/24 07:28 Surgeon: Stiven Pre Op Diagnosis: Perianal abscess Patient Data Age: 69 Gender: M Height: 1.78 m Weight: 109 kg Last Vital Signs Temp 36.9 C 04/12/24 03:29 Pulse 76 04/12/24 03:29 Resp 18 04/12/24 03:29 BP 100/46 L 04/12/24 03:29 Pulse Ox 96 04/12/24 03:29 O2 Del Method Room Air 04/11/24 20:00 Allergies Allergy/AdvReac Type Severity Reaction Status Date / Time No Known Allergies Allergy Verified 04/11/24 14:59 Home Medications Medication Instructions Recorded Confirmed Type blood sugar diagnostic (Blood #100 ea 11/10/20 04/11/24 Rx Glucose Test strips) blood-glucose meter #1 ea 11/10/20 04/11/24 Rx lancets #200 ea 11/10/20 04/11/24 Rx methylphenidate HCl 20 mg tablet 20 mg PO TID #90 tabs 02/20/23 04/11/24 Rx valsartan 80 mg tablet 80 mg PO DAILY #90 tabs 09/15/23 04/11/24 Rx fenofibrate 160 mg tablet 160 mg PO DAILY #90 tabs 10/24/23 04/11/24 Rx dulaglutide 0.75 mg/0.5 mL 0.75 mg (0.5 mL) subcut WEEKLY #2 11/17/23 04/11/24 Rx subcutaneous pen injector mL (Trulicity) gabapentin 100 mg capsule 100 mg PO BID #60 caps 12/13/23 04/11/24 Rx atorvastatin 20 mg tablet 20 mg PO DAILY #90 tabs 02/06/24 04/11/24 Rx Laboratory Tests 04/11/24 04/11/24 04/11/24 15:42 16:09 23:34 WBC 11.6 H K/mm3 (4.5-10.0) RBC 5.41 M/mm3 (4.6-6.20) Hgb 14.3 g/dL (14.0-18.0) Hct 44.2 % (42.0-52.0) MCV 81.7 fl (80-100) MCH 26.4 pg (26-34) MCHC 32.4 g/dl (32-36) RDW 14.5 % (11.5-14.5) Plt Count 244 k/mm3 (150-375) MPV 10.4 fl (7.4-10.4) Immature Gran % (Auto) 0.4 % (0-0.5) Neut % (Auto) 72.3 % (45.5-73.1) Lymph % (Auto) 20.4 % (18.3-44.2) [place] % (Auto) 6.4 % (2.6-8.5) Eos % (Auto) 0.2 % (0-4.4) Baso % (Auto) 0.3 % (0.2-1.2) Lymph # (Auto) 2.37 K/mm3 (0.9-3.2) [place] # (Auto) 0.7 H K/mm3 (0.1-0.6) Eos # (Auto) 0.0 K/mm3 (0-0.3) Baso # (Auto) 0.0 K/mm3 (0.0-0.1) Abs Immat Gran (auto) 0.05 H K/mm3 (0.00-0.031) Absolute Neuts (auto) 8.4 H K/mm3 (1.3-6.7) Absolute Nucleated RBC 0.000 K/mm3 (0.0-0.012) Nucleated RBC % 0.0 % (0.0-0.2) Sodium 139 mmol/L (137-145) Potassium 4.0 mmol/L (3.4-5.0) Chloride 102 mmol/L (98-107) Carbon Dioxide 23 mmol/L (22-30) Anion Gap 14 H mmol/L (4-12) BUN 12 mg/dL (9-20) Creatinine 1.10 mg/dL (0.7-1.3) Estim Creat Clear Calc 71 ml/min Estimated GFR > 60 (59 - ) Glucose 95 mg/dL (65-110) POC Capillary Glucose 122 H mg/dl (65-105) Calcium 9.6 mg/dL (8.4-10.2) Total Bilirubin 0.5 mg/dL (0.2-1.3) AST 22 U/L (17-59) ALT 19 U/L (6-50) Alkaline Phosphatase 52 U/L (38-126) Total Protein 8.0 g/dL (6.3-8.2) Albumin 4.5 g/dL (3.5-5.1) Lipase 46 U/L (23-300) Urine Color Yellow (Yellow) Urine Appearance Clear (Clear) Urine pH 7.0 (5.0-9.0) Ur Specific [place] 1.019 (1.001-1.035) Urine Protein Negative mg/dL (Negative) Urine Glucose (UA) Negative mg/dL (Negative) Urine Ketones Negative mg/dL (Negative) Ur Blood (Man) Negative (Negative) Urine Nitrate Negative (Negative) Urine Bilirubin Negative (Negative) Urine Urobilinogen 1.0 mg/dL (<2.0) Leukocyte Esterase Rfl Trace H FIONA/UL (Negative) Urine RBC 0-2 /hpf (0-2) Urine WBC 0-5 /hpf
--- NOTE | 2024-04-12 07:54 | PM.IMPN ---
Progress Note: A&P Assessment and Plan (1) Abscess, perianal: Code(s): K61.0 - Anal abscess Status: Acute Plan (1) Abscess, perianal: Code(s): K61.0 - Anal abscess Status: Acute Assessment and Plan: As evidence by pain and abdomen CT -consult General surgery appreciate recommendation and plan -NPO after midnight -pain management Q 3 hours IV -provide supportive ice therapy as requested -blood cultures x2, note 1st dose antibiotic already given -continue Zosyn 3.375 q.6 hours IVPB Status post I&D today without complication Switch to Augmentin p.o. Sepsis Upon arrival, patient has tachypnea, tachycardia, leukocytosis 11,600, low-grade fever 99.3, Likely resulting from an abscess Antibiotics see above Blood culture no growth so far Received fluid resuscitation resolved (2) Chronic bilateral low back pain: Code(s): M54.5 - Low back pain; G89.29 - Other chronic pain Status: Acute Assessment and Plan: Chronic -continue pain management (3) Diabetes type 2, controlled: Code(s): E11.9 - Type 2 diabetes mellitus without complications Status: Acute Assessment and Plan: -chronic with neuropathy -start bedside glucose monitoring q.6 hours -[facility] -initiate hypoglycemic protocol during hospitalization Resume home medication of her discharge (4) HLD (hyperlipidemia): Code(s): E78.5 - Hyperlipidemia, unspecified Status: Acute Assessment and Plan: -chronic -continue home medication (5) Diabetic neuropathy: Code(s): E11.40 - Type 2 diabetes mellitus with diabetic neuropathy, unspecified Status: Acute Assessment and Plan: -see plan above Plan Continue home medications: Atorvastatin, fenofibrate, gabapentin, valsartan VTE Prophylaxis: Baram hose DIET: NPO after midnight Anticipated hospital stay: > observation Code Status: Full code Subjective Date/time seen: 04/12/24 07:54 Interval history: I saw exam patient today, patient underwent I and D perianal abscess today. No complication during surgical procedure. When I saw exam patient, patient denies chest pain, abdomen pain, nausea vomiting diarrhea. Patient afebrile, blood pressure stable Exam Narrative: GENERAL: Pleasant, in no acute distress. Well-nourished. - EYES: EOMI. Anicteric. - HENT: Moist mucous membranes. - LUNGS: Clear to auscultation bilaterally, no wheezing, rhonchi, or rales. - CARDIOVASCULAR: Regular rate and rhythm. No murmur. No JVD. - ABDOMEN: Soft, non-tender and non-distended. No palpable masses. Perianal abscess, status post I and D - EXTREMITIES: No edema. Peripheral pulses 2+. Non-tender. - NEUROLOGIC: No focal neurological deficits. CN II-XII grossly intact. - PSYCHIATRIC: Awake, Alert and oriented x 3. Appropriate mood and affect. - SKIN: No rashes or lesions. Warm. - LYMPH: No cervical lymphadenopathy. Objective Data Vital Signs Vital Signs: Vital Signs - 24 hr 04/11/24 15:03 04/11/24 18:13 04/11/24 20:02 Temperature 97.6 F 99.3 F 99.3 F Pulse Rate 103 H 91 Respiratory Rate 18 17 Blood Pressure 133/70 115/67 Pulse Oximetry 99 96 Oxygen Delivery 04/11/24 20:00 04/11/24 23:41 04/12/24 03:29 Temperature 98.0 F 98.5 F Pulse Rate 74 76 Respiratory Rate 20 18 Blood Pressure 123/58 L 100/46 L Pulse Oximetry 98 96 Oxygen Delivery Room Air Intake/Output Intake/Output: Intake & Output 04/09/24 04/10/24 04/11/24 04/12/24 23:59 23:59 23:59 23:59 Intake Total 1050 1100 Balance 1050 1100 Meds/Results Medications: Active Medications Generic Name Dose Route Start Last Admin Trade Name Freq PRN Reason Stop Dose Admin Atorvastatin Calcium 20 mg 04/12/24 09:00 Atorvastatin 20 Mg Tablet PO DAILY [facility] Dextrose 12.5 gm 04/11/24 21:42 Dextrose 50% 25 Gm/50 Ml Syringe IV PUSH PRN PRN Hypoglycemia Protocol Fenofibrate 160 m
--- NOTE | 2024-04-12 07:55 | PC.NURSE ---
Patient off unit to surgery via wheelchair. Report given to Tabatha POP.
[2024-04-12] MEDS: LACTATED RINGERS 1,000 ML 30 ML IV CONT (08:34)
[2024-04-12] MEDS: fentaNYL CITRATE INJ (*CRX) 100 MCG/2 ML VIAL 50 MCG IV PUSH (08:38)
--- NOTE | 2024-04-12 08:52 | WPDHPUPDATE1 ---
History and Physical Update Update Date/Time: 04/12/24 08:52 History and Physical has been reviewed, including an updated exam of the patient. There are NO changes in the patient's condition. Risks, benefits, and alternatives have been discussed and questions answered. Patient agrees to proceed with procedure.
[2024-04-12] MEDS: BUPIVACAINE/EPINEPHRINE 0.5% 10 ML VIAL 30 ML INFILTRATE (09:27)
--- NOTE | 2024-04-12 10:18 | P.OP_ITS ---
Procedure Note - Detailed Date of Procedure 04/12/24 Pre-op Diagnosis Perirectal abscess Post-op Diagnosis Other (Perirectal abscess with fistula in ANO) Procedure Performed Incision and drainage perirectal abscess, anal fistulotomy Surgeon Fabiano Saleem MD Anesthesia General and Local Indications Patient has had a painful area on his rectum for the last 3-4 days. He came to the emergency room and was noted to have rectal tenderness and leukocytosis. CT scan showed a perirectal abscess. He is taken to surgery now for incision and drainage of perirectal abscess Findings He had a left anterior perirectal abscess very near the anal verge. He also had a well-defined tract to the dentate line consistent with a short fistula in ANO that was intersphincteric. Description of Procedure Patient was taken to surgery and induced into general anesthesia. He was then turned and placed in prone lidia-knife position. The buttocks were taped apart. Prep and drape was carried out. Inspection of the distal rectum and anal canal was carried out. There was little sign of an abscess other than in the left anterior quadrant there was somewhat of a bulge and sensation of fluctuance. The overlying skin was, however, normal. An 18 gauge needle and syringe were then used and this area was aspirated. Purulent fluid was withdrawn. I then made a cruciate incision over this area. Purulent fluid came forth. It did track somewhat anterior and posterior but not more than half a cm in either direction. Placing a curved clamp in the abscess, it easily went through to the dentate line on the rectum. It was a very short, intersphincteric fistula. I went ahead and performed fistulotomy with the cautery. The Bovie was used to divide the anal mucosa and the overlying skin. We completely unroof the fistul a. I then suction and irrigated the area to remove all the purulent fluid. Some cautery was used to achieve hemostasis. Then pressure was held over the wound. Hemostasis was good. No other anorectal pathology was noted. The open wound was dressed with Xeroform gauze. Fluffs were placed over the rectum as well as an ABD. Medipore tape was used all the dressings in place and Promise panties were placed stent. Patient was returned to a supine position, awakened and taken to recovery in good condition. Sponge needle counts were correct x2. Estimated Blood Loss -5 Drains No Packing No Pathology None sent Complications None Condition Stable Disposition PACU [facility] Billing Surgery - Charge Forward: Surgery Billing (Incision and drainage perirectal abscess, anal intersphincteric fistulotomy.)
[2024-04-12 10:57] LABS: Glucose Point of Care 110 mg/dl (65-105)
--- NOTE | 2024-04-12 11:04 | PC.NURSE ---
Patient returned to floor via stretcher from OR. Report received from Td POP. No patient complaints at this time.
[2024-04-12] MEDS: ACETAMINOPHEN 500 MG TABLET PO (12:15)
[2024-04-12] MEDS: methylPHENIDATE HCL (*CRX) 10 MG TABLET 20 MG PO (12:15)
[2024-04-12 13:20] LABS: Glucose Point of Care 204 mg/dl (65-105)
--- NOTE | 2024-04-12 13:40 | PM.DS ---
DS: Admitting Diagnosis Discharge Date 04/12 Admitting Diagnosis (1) Abscess, perianal: Code(s): K61.0 - Anal abscess Status: Acute DS: Discharge Diagnosis Discharge Diagnosis (1) Abscess, perianal: Code(s): K61.0 - Anal abscess Status: Acute DS: Summary Hospital Course Hospital Course: 69-year-old male with PMHx: of HTN, hyperlipidemia, type 2 diabetes on Trulicity chronic bilateral low back pain, presented to the emergency room today with complaint of ongoing rectal pain for the past 3 days. Patient reports he started noticing pain when trying to have a bowel movement, as well as sitting in certain position, today the pain worsened while trying to have a bowel movement prompting Mr. Taylor to come to the emergency room for further evaluation. He denies any rectal bleeding, or recent trauma, he denies any fever chills nausea vomiting. ED Work-up reveals:: Initial vitals: b/p, rr, pr, sp02 % on RA or NC, T: 97.6, MT 103, RR 18, SpO2 99%, b/p: 133/70, WBC elevated at 11.5, UA reveals trace leukocyte Estrace, patient tender on exam, CT abdomen and pelvis with IV contrast showed very anal abscess, general surgeon Dr. Saleem consulted, patient admitted for further evaluation of perianal abscess. the following med issues have been addressed during hospitalization (1) Abscess, perianal: Code(s): K61.0 - Anal abscess Status: Acute Assessment and Plan: As evidence by pain and abdomen CT -consult General surgery appreciate recommendation and plan -NPO after midnight -pain management Q 3 hours IV -provide supportive ice therapy as requested -blood cultures x2, note 1st dose antibiotic already given -continue Zosyn 3.375 q.6 hours IVPB Status post I&D today without complication Switch to Augmentin p.o. Sepsis Upon arrival, patient has tachypnea, tachycardia, leukocytosis 11,600, low-grade fever 99.3, Likely resulting from an abscess Antibiotics see above Blood culture no growth so far Received fluid resuscitation resolved Chronic bilateral low back pain: Code(s): M54.5 - Low back pain; G89.29 - Other chronic pain Status: Acute Assessment and Plan: Chronic -continue pain management Diabetes type 2, controlled: Code(s): E11.9 - Type 2 diabetes mellitus without complications Status: Acute Assessment and Plan: -chronic with neuropathy -start bedside glucose monitoring q.6 hours -hold Trulicity -initiate hypoglycemic protocol during hospitalization Resume home medication of her discharge HLD (hyperlipidemia): Code(s): E78.5 - Hyperlipidemia, unspecified Status: Acute Assessment and Plan: -chronic -continue home medication Diabetic neuropathy: Code(s): E11.40 - Type 2 diabetes mellitus with diabetic neuropathy, unspecified Status: Acute Assessment and Plan: -see plan above Continue home medications: Atorvastatin, fenofibrate, gabapentin, valsartan Patient will discharge home today per general surgery recommendation, patient will see primary care doctor in 1 week and and general surgeon at scheduled appointment Time Spent with Patient Time attestation: Total time spent providing and/or coordinating discharge services: Exam Narrative: GENERAL: Pleasant, in no acute distress. Well-nourished. - EYES: EOMI. Anicteric. - HENT: Moist mucous membranes. - LUNGS: Clear to auscultation bilaterally, no wheezing, rhonchi, or rales. - CARDIOVASCULAR: Regular rate and rhythm. No murmur. No JVD. - ABDOMEN: Soft, non-tender and non-distended. No palpable masses. Perianal abscess, status post I and D - EXTREMITIES: No edema. Peripheral pulses 2+. Non-tender. - NEUROLOGIC: No focal neurological deficits. CN II-XII grossly intact. - PSYCHIATRIC: Awake, Alert and oriented x 3. Appropriate mood and affect. - SKIN: No rashes or lesions. Warm. - LYMPH: No cervical lymphadenopathy. DS: Olga
== END 2024-04-12 14:40 | disposition home or self-care (01) | DRG 344 ==
LOC: ANHED 17:33 → ANH3MED 04-12 07:08 → ANH3MEDSUR 04-16 08:44
PROVIDERS: Nurse Practitioner; Surgery; Admitting Provider General Practice; Emergency Provider Emergency Medicine; PCP Family Medicine; Visit Provider Hospitalist
PROC: 0D9P0ZZ Drainage of Rectum, Open Approach (ICD-10-PCS; CPT 46040; principal; 2024-04-12 09:00)
DX: K61.2 Anorectal abscess (principal); A41.9 Sepsis, unspecified organism; I10 Essential (primary) hypertension; E78.5 Hyperlipidemia, unspecified; E66.9 Obesity, unspecified; E11.40 Type 2 diabetes mellitus with diabetic neuropathy, unspecified; G89.29 Other chronic pain; G47.33 Obstructive sleep apnea (adult) (pediatric); M54.9 Dorsalgia, unspecified; Z90.49 Acquired absence of other specified parts of digestive tract; Z87.891 Personal history of nicotine dependence; Z79.85 Long-term (current) use of injectable non-insulin antidiabetic drugs; Z99.89 Dependence on other enabling machines and devices
CPT/HCPCS: 36415; 74177; 80053; 81001; 82948; 83690; 85025; 87040; 96361; 96365; 96374; 96375; 96376; 99285; A9270; G0378; J1100; J1170; J2250; J2405; J2543; J2704; J3010; J7030; J7120; Q9967

== ENCOUNTER 2024-05-28 01:38 | Day surgery (SDC) | payer MEDICARE, SELFPAY ==
[2024-05-08 16:01] VITALS: BMI 34.4
--- NOTE | 2024-05-27 16:57 | WPDANESEPP ---
Anes - Eval Pre Procedure Procedure: Operation Date: 05/28/24 07:30 Proposed Procedures p Screening Colonoscopy - James Danielle DO Date/Time: 05/27/24 16:57 Pre Op Diagnosis: Screening for malignant neoplasm of colon & rectum Patient Data Age: 69 Gender: M Height: 1.78 m Weight: 109 kg Allergies Allergy/AdvReac Type Severity Reaction Status Date / Time No Known Allergies Allergy Verified 05/08/24 16:00 Home Medications Medication Instructions Recorded Confirmed Type blood sugar diagnostic (Blood #100 ea 11/10/20 04/30/24 Rx Glucose Test strips) blood-glucose meter #1 ea 11/10/20 04/30/24 Rx lancets #200 ea 11/10/20 04/30/24 Rx methylphenidate HCl 20 mg tablet 20 mg PO TID #90 tabs 02/20/23 05/08/24 Rx valsartan 80 mg tablet 80 mg PO DAILY #90 tabs 09/15/23 05/08/24 Rx gabapentin 100 mg capsule 100 mg PO BID #60 caps 12/13/23 05/08/24 Rx atorvastatin 20 mg tablet 20 mg PO DAILY #90 tabs 02/06/24 05/08/24 Rx fenofibrate 160 mg tablet 160 mg PO DAILY #90 tabs 05/06/24 05/08/24 Rx dulaglutide 1.5 mg/0.5 mL 1.5 mg (0.5 mL) subcut WEEKLY #2 mL 05/15/24 Rx subcutaneous pen injector (Trulicity) Patient hx anesthesia problems: none Family hx anesthesia problems: none Results Review: All pre-operative results and documents have been reviewed as part of the pre-operative evaluation. [facility] Past Medical History Medical History (Updated 05/27/24 @ 16:58 by Anil Rodriguez Jr., CRNA) Attention deficit disorder (ADD) in adult Chronic bilateral low back pain Diabetic neuropathy History of kidney stones HLD (hyperlipidemia) HTN (hypertension) Marijuana use Obesity SKIP on CPAP Smoker Tear of medial meniscus of right knee Type 2 diabetes mellitus with hyperglycemia Surgical History Surgical History H/O lithotripsy (~2013) H/O lithotripsy (~2014) History of cholecystectomy (~1996) History of drainage of abscess 04/12/2024 - Incision and drainage perirectal abscess, anal fistulotomy History of hernia repair (~2001) History of lumbar surgery (~2018) L1-S2 Family History Family History Mother Patient's mother is , Onset Age: 63 Heart disease Father Patient's father is , Onset Age: 70 Heart disease Social History Social History Social History: Smoking packs per day: 1 Smoking cigarettes per day: 20.0 Years smoked: 20 Smoking pack-years: 20.00 Smoking status: Former smoker Tobacco type: cigarettes Second hand tobacco smoke exposure: No Smoking end date: 08/14/99 Additional smoking assessment comments: quit smoking 25 years ago Alcohol intake: never Alcohol use details: quit 22 years ago Substance use: never Substance use type: marijuana Other substance usage details: gummies x1/week Do You Feel Safe in your Home?: Yes Lack of Transportation: No Lack of Food: Never True Current Housing: I Have Housing Concerned About Future Housing: No Difficulty Paying Gas/Electric Bills: No Difficulty Paying for Meds: No Currently Unemployed: No Education: Don't Know Difficulty w/ Childcare or Family Care: No Living arrangements: with family Occupation/Education: occupation Gender identity (if verbalized by the patient): Male Sexual Orientation (if Verbalized by the Patient): Straight or Heterosexual Spiritual care concerns: No Exam Day of Procedure 05/27/24 16:57 Patient weight: obese
[2024-05-28 06:50] VITALS: BP 145/61; PULSE 83; RESP 18; TEMP 36.6; O2SAT 97
--- NOTE | 2024-05-28 06:56 | P.PNAN_ITS ---
Anes - Eval Final PreProcedure Day of Procedure 05/28/24 06:56 Patient weight: obese Heart: regular rate and rhythm Lungs: clear to auscultation Airway: Mallampati scale class II Neurological: alert and oriented Last oral intake: >/= 8 hours ASA classification: III Emergent: no Anesthetic plan: proceed Anesthesia type and monitoring: general GIVS and standard monitoring Results Review: All pre-operative results and documents have been reviewed as part of the pre- operative evaluation. Informed Consent: The patient's anesthetic plan and its attendant risks and benefits were discussed with the patient/family/POA. Questions were solicited and answers provided to the satisfaction of the patient/family/POA.
[2024-05-28] MEDS: LACTATED RINGERS 1,000 ML 150 ML IV CONT (06:57)
[2024-05-28 07:00] LABS: Glucose Point of Care 138 mg/dl (65-105)
--- NOTE | 2024-05-28 07:27 | PM.IMHP ---
H&P: HPI History of Present Illness Date/Time: 05/28/24 07:27 Chief Complaint: Screening for colorectal cancer Narrative: this is a 69-year-old man who presents for colonoscopy. His last colonoscopy was 10-12 years ago. He denies any hematochezia or melena. He denies any family history of colon cancer. Review of Systems Review of Systems: All systems reviewed & are unremarkable except as noted in HPI and below Constitutional: Constitutional: Denies chills, Denies fever(s), Denies headache(s) and Denies weight loss Eyes: Eyes: Denies change in vision ENT: Denies dizziness, Denies headache(s), Denies neck mass and Denies throat swelling Cardiovascular: Cardiovascular: Denies chest pain, Denies lightheadedness and Denies dyspnea Respiratory: Respiratory: Denies cough, Denies dyspnea and Denies wheezing Gastrointestinal: Gastrointestinal: Denies abdominal pain, Denies change in bowel habits, Denies nausea and Denies vomiting Genitourinary: Genitourinary: Denies hematuria and Denies dysuria Musculoskeletal: Musculoskeletal: Reports as per HPI Integumentary/Breasts: Skin/Breast: Reports as per HPI Neurologic: Denies dizziness and Denies headache(s) Allergic/Immunologic: Allergic/Immunologic: Denies throat swelling and Denies wheezing [facility] Past Medical History Medical History (Updated 05/28/24 @ 07:28 by James Danielle DO) Attention deficit disorder (ADD) in adult Chronic bilateral low back pain Diabetic neuropathy History of kidney stones HLD (hyperlipidemia) HTN (hypertension) Marijuana use Obesity SKIP on CPAP Smoker Tear of medial meniscus of right knee Type 2 diabetes mellitus with hyperglycemia Surgical History Surgical History H/O lithotripsy (~2013) H/O lithotripsy (~2014) History of cholecystectomy (~1996) History of drainage of abscess 04/12/2024 - Incision and drainage perirectal abscess, anal fistulotomy History of hernia repair (~2001) History of lumbar surgery (~2017) L1-S2 Family History Family History Mother Patient's mother is , Onset Age: 63 Heart disease Father Patient's father is , Onset Age: 70 Heart disease Social History Social History Social History: Smoking packs per day: 1 Smoking cigarettes per day: 20.0 Years smoked: 20 Smoking pack-years: 20.00 Smoking status: Former smoker Tobacco type: cigarettes Second hand tobacco smoke exposure: No Smoking end date: 08/14/99 Additional smoking assessment comments: quit smoking 25 years ago Alcohol intake: never Alcohol use details: quit 22 years ago Substance use: never Substance use type: marijuana Other substance usage details: gummies x1/week Do You Feel Safe in your Home?: Yes Lack of Transportation: No Lack of Food: Never True Current Housing: I Have Housing Concerned About Future Housing: No Difficulty Paying Gas/Electric Bills: No Difficulty Paying for Meds: No Currently Unemployed: No Education: Don't Know Difficulty w/ Childcare or Family Care: No Living arrangements: with family Occupation/Education: occupation Gender identity (if verbalized by the patient): Male Sexual Orientation (if Verbalized by the Patient): Straight or Heterosexual Spiritual care concerns: No Meds Home Medications and Allergies Home Medications Medication Instructions Recorded Confirmed Type blood sugar diagnostic (Blood #100 ea 11/10/20 04/30/24 Rx Glucose Test strips) blood-glucose meter #1 ea 11/10/20 04/30/24 Rx lancets #200 ea 11/10/20 04/30/24 Rx methylphenidate HCl 20 mg tablet 20 mg PO TID #90 tabs 02/20/23 05/08/24 Rx valsartan 80 mg tablet 80 mg PO DAILY #90 tabs 09/15/23 05/08/24 Rx gabapentin 100 mg capsule 100 mg PO BID #60 caps
[2024-05-28 07:49] VITALS: BP 99/64; PULSE 85; RESP 22; O2SAT 95
[2024-05-28 07:59] VITALS: BP 97/62; PULSE 77; RESP 17; O2SAT 96
[2024-05-28 08:09] VITALS: BP 125/75; PULSE 66; RESP 15; O2SAT 97
== END 2024-05-28 08:22 | disposition home or self-care (01) ==
PROVIDERS: PCP Family Medicine; Visit Provider Surgery
PROC: 0DJD8ZZ Inspection of Lower Intestinal Tract, Via Natural or Artificial Opening Endoscopic (ICD-10-PCS; CPT 45378; principal; 2024-05-28 07:30)
DX: Z12.11 Encounter for screening for malignant neoplasm of colon (principal); D12.5 Benign neoplasm of sigmoid colon; K57.30 Diverticulosis of large intestine without perforation or abscess without bleeding; E78.5 Hyperlipidemia, unspecified; I10 Essential (primary) hypertension; G47.33 Obstructive sleep apnea (adult) (pediatric); E11.40 Type 2 diabetes mellitus with diabetic neuropathy, unspecified; E11.65 Type 2 diabetes mellitus with hyperglycemia; F98.8 Other specified behavioral and emotional disorders with onset usually occurring in childhood and adolescence; M54.50 Low back pain, unspecified; G89.29 Other chronic pain; F12.90 Cannabis use, unspecified, uncomplicated; E66.9 Obesity, unspecified; Z68.34 Body mass index [BMI] 34.0-34.9, adult; Z99.89 Dependence on other enabling machines and devices; Z79.85 Long-term (current) use of injectable non-insulin antidiabetic drugs; Z98.890 Other specified postprocedural states; Z90.49 Acquired absence of other specified parts of digestive tract; Z98.1 Arthrodesis status; Z87.891 Personal history of nicotine dependence; Z87.442 Personal history of urinary calculi; Z82.49 Family history of ischemic heart disease and other diseases of the circulatory system
CPT/HCPCS: 45385; 82948; 88305; J2003; J2704; J7120